=== PATIENT | male | born 1950 | race Caucasian/White ===

== ENCOUNTER 2018-11-27 18:50 | Observation (INO) | payer OTHER ==
--- OUTSIDE RECORDS SUMMARY | 2018-11-27 18:51 | XMS REPORT | Clinical Summary ---
:1950 Author Organization [facility] Address [address] [place] [address] Care Team Providers Name Role Phone Luh Humphreys DO Primary Care Provider Allergies Active Allergy Reactions Severity Noted Date Comments No Known Drug Allergies 10/22/2015 Medications Medication Sig Dispensed Refills Start Date End Date Status buPROPion SR Take 1 180 tablet 1 06/23/2017 Active (WELLBUTRIN SR) 150 tablet(s) twice MG 12 hr tablet a day by oral route. ezetimibe-simvastati Take 1 90 tablet 1 06/23/2017 Active n (VYTORIN 10-20) tablet(s) every 10-20 mg per tablet day by oral route. clopidogrel (PLAVIX) Take 1 90 tablet 1 06/23/2017 Active 75 mg tablet tablet(s) every day by oral route. isosorbide one p.o. q. day 90 tablet 1 06/23/2017 Active mononitrate (IMDUR) 30 MG 24 hr tablet tamsulosin (FLOMAX) one P.O.B.I.D. 180 capsule 1 06/23/2017 Active 0.4 mg capsule,extended release 24hr PARoxetine (PAXIL) Take 1 tablet 90 tablet 1 06/30/2017 06/30/2018 20 MG tablet (20 mg total) by mouth every morning. Active Problems Problem Noted Date Right inguinal hernia 08/03/2017 Overview: Added automatically from request for surgery [id number] Essential hypertension 06/23/2017 History of coronary artery stent placement 11/05/2016 Unilateral inguinal hernia without obstruction or gangrene 11/05/2016 Hernia, inguinal, right 11/05/2016 Benign prostatic hyperplasia 10/22/2015 Coronary artery disease involving [place] coronary artery of [place] heart 10/21 without angina pectoris Gastroesophageal reflux disease 10/22/2015 Depression 10/22/2015 Goiter 10/22/2015 Hypercholesteremia 10/22/2015 Neck pain 10/22/2015 Encounters Date Type Specialty Care Team Description 05/16/2018 Refill Family Medicine Luh Humphreys, 02/03/2018 Refill Family Medicine Luh Humphreys, DO after 11/26/2017 Immunizations Name Dates Previously Given Next Due FLUZONE HIGH-DOSE PF 05/22/2014 Family History Medical History Relation Name Comments COPD Father Heart disease Mother Heart disease Sister Heart disease Sister Relation Name Status Comments Father (Age 78) Mother (Age 83) Sister Alive heart attack. Sister #2 sister, of cirrhosis of liver. Social History Tobacco Use Types Packs/Day Years Used Date Former Smoker Pipe, Cigarettes 0 Smokeless Tobacco: Never Used Comments: states previously smoker for 3 years, quit 1988. Alcohol Use Drinks/Week oz/Week Comments Yes 2 Cans of beer 1.2 once/ weekly. Sex Assigned at Date Recorded Not on file Job Start Date Occupation Industry Not on file Not on file Not on file Travel History Travel Start Travel End No recent travel history available. Last Filed Vital Signs Not on file Plan of Treatment Health Maintenance Due Date Last Done Comments SHINGLES VACCINES (#1) 1998 65+ PNEUMOCOCCAL VACCINE (2 of 2 - PPSV23) 2013 08/29/2017 INFLUENZA VACCINE 03/22/2019 05/22/2014 COLON CANCER SCREENING 08/22/2023 08/22/2013 PNEUMOCOCCAL POLYSACCHARIDE VACCINE AGE 65 AND OVER Completed 08/29/2017 Results Not on fileafter 11/26/2017 Insurance Payer Benefit Plan / Group Subscriber ID Type Phone Address [facility] xxxxxxxxxxx Advance Directives Patient has advance care planning documents on file. For more information, please contact:Luke Horton[address] [place] [address]
--- NOTE | 2018-11-27 19:10 | EDPHYS ---
Physician Documentation [facility] Name: Keaton Walker Jr Age: 68 yrs Sex: Male : 1950 Arrival Date: 11/27/2018 Time: 18:51 Bed 30 Private MD: ED Physician Clemente Irizarry HPI: 11/27 19:06 This 68 yrs old Male presents to ER via Ambulatory with complaints of Chest aletha Pain. 19:06 The patient or guardian reports chest pain that is located primarily in the substernal aletha area. Onset: just prior to arrival, 1 hour(s) ago. The pain radiates to both arms, Associated signs and symptoms: The patient has no apparent associated signs or symptoms. The chest pain is described as a pressure, squeezing. Duration: The patient or guardian reports a single episode, that is still ongoing, but improving. Modifying factors: The symptoms are alleviated by nothing. the symptoms are aggravated by nothing. Severity of pain: At its worst the pain was moderate in the emergency department the pain has improved moderately. The patient has experienced similar episodes in the past, a few times. 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 - Social history:: Smoking status: Patient/guardian denies using tobacco. - Ebola Screening: : Patient denies exposure to infectious person Patient denies travel to an Ebola-affected area in the 21 days before illness onset. - Family history:: not pertinent. ROS: 19:06 Constitutional: Negative for fever, chills, and weight loss, Eyes: Negative for injury, aletha pain, redness, and discharge, ENT: Negative for injury, pain, and discharge, Neck: Negative for injury, pain, and swelling, Respiratory: Negative for shortness of breath, cough, wheezing, and pleuritic chest pain, Abdomen/GI: Negative for abdominal pain, nausea, vomiting, diarrhea, and constipation, Back: Negative for injury and pain, : Negative for injury, bleeding, discharge, and swelling, MS/Extremity: Negative for injury and deformity, Skin: Negative for injury, rash, and discoloration, Neuro: Negative for headache, weakness, numbness, tingling, and seizure, Psych: Negative for depression, anxiety, suicide ideation, homicidal ideation, and hallucinations, Allergy/Immunology: Negative for hives, rash, and allergies, Endocrine: Negative for neck swelling, polydipsia, polyuria, polyphagia, and marked weight changes. 19:06 Cardiovascular: Positive for chest pain, of the chest. Exam: 19:06 Constitutional: This is a well developed, well nourished patient who is awake, alert, aletha and in no acute distress. Head/Face: Normocephalic, atraumatic. Eyes: Pupils equal round and reactive to light, extra-ocular motions intact. Lids and lashes normal. Conjunctiva and sclera are non-icteric and not injected. Cornea within normal limits. Periorbital areas with no swelling, redness, or edema. ENT: Nares patent. No nasal discharge, no septal abnormalities noted. Tympanic membranes are normal and external auditory canals are clear. Oropharynx with no redness, swelling, or masses, exudates, or evidence of obstruction, uvula midline. Mucous membranes moist. Neck: Trachea midline, no thyromegaly or masses palpated, and no cervical lymphadenopathy. Supple, full range of motion without nuchal rigidity, or vertebral point tenderness. No Meningismus. Chest/axilla: Normal chest wall appearance and motion. Nontender with no deformity. No lesions are appreciated. Cardiovascular: Regular rate and rhythm with a normal S1 and S2. No gallops, murmurs, or rubs. Normal PMI, no JVD. No pulse deficits. Respiratory: Lungs have equal breath sounds bilaterally, clear to auscultation and percussion. No rales, rhonchi or wheezes noted. No increased work of breathing, no retractions or nasal flaring. Abdomen/GI: Soft, non-tender, with normal bowel sounds. No distension or tympany. No guarding or rebound. No evidence of tenderness throughout. Back: No spinal tenderness. No costovertebral tenderness. Full range of motion. Male : Normal genitalia with no discharge or lesions. Skin: Warm, dry with normal turgor. Normal color with no rashes, no lesions, and no evidence of cellulitis. MS/ Extremity: Pulses equal, no cyanosis. Neurovascular intact. Full, normal range of motion. Neuro: Awake and alert, GCS 15, oriented to person, place, time, and situation. Cranial nerves II-XII grossly intact. Motor strength 5/5 in all extremities. Sensory grossly intact. Cerebellar exam normal. Normal gait. Psych: Awake, alert, with orientation to person, place and time. Behavior, mood, and affect are within normal limits. Vital Signs: 18:57 BP 182 / 95; Pulse 84; Resp 19; Temp 98.0(O); Pulse Ox 98% on R/A; Weight 86.18 kg; ss Height 5 ft. 10 in. (177.80 cm); Pain 5/10; 19:50 BP 173 / 91; Pulse 73; Resp 20; Pulse Ox 97% on R/A; rr5 20:30 BP 144 / 74 LA; Pulse 64; Resp 16 S; Pulse Ox 97% on R/A; rv 21:00 BP 148 / 78 LA; Pulse 59; Resp 17 S; Pulse Ox 97% on R/A; rv 21:30 BP 140 / 75 LA; Pulse 56; Resp 16 S; Pulse Ox 96% on R/A; rv 22:00 BP 144 / 73 LA; Pulse 58; Resp 17 S; Pulse Ox 95% on R/A; rv 22:30 BP 137 / 83 LA; Pulse 58; Resp 16 S; Pulse Ox 95% on R/A; rv 23:46 BP 140 / 81 LA; Pulse 58; Resp 18 S; Pulse Ox 96% on R/A; rv 18:57 Body Mass Index 27.26 (86.18 kg, 177.80 cm) MDM: 18:56 Patient medically screened. [facility] 20:36 Data reviewed: vital signs, nurses notes, lab test result(s), EKG, radiologic studies, aletha plain films. 11/27 19:06 Order name: Basic Metabolic Panel; Complete Time: 20:35 aletha 11/27 19:06 Order name: CBC with Diff; Complete Time: 20:35 aletha 11/27 19:06 Order name: LFT's; Complete Time: 20:35 aletha 11/27 19:06 Order name: Magnesium; Complete Time: 20:35 aletha 11/27 19:06 Order name: NT PRO-BNP; Complete Time: 20:35 [facility] 11/27 19:06 Order name: PT-INR; Complete Time: 20:35 aletha 11/27 19:06 Order name: Troponin (emerg Dept Use Only); Complete Time: 20:35 aletha 11/27 19:06 Order name: Lipase; Complete Time: 20:35 aletha 11/27 20:57 Order name: Basic Metabolic Panel EDMS 11/27 20:58 Order name: Basic Metabolic Panel EDMS 11/27 20:58 Order name: CBC with Automated Diff EDMS 11/27 20:58 Order name: CBC with Automated Diff EDMS 11/27 20:58 Order name: Lipid Profile EDMS 11/27 20:58 Order name: Lipid Profile EDMS 11/27 19:06 Order name: XRAY Chest (1 view); Complete Time: 20:35 aletha 11/27 19:06 Order name: EKG; Complete Time: 19:07 aletha 11/27 20:57 Order name: CONS Physician Consult EDMS 11/27 20:57 Order name: Heart Healthy EDMS 11/27 20:57 Order name: Echo with Doppler EDMS 11/27 20:58 Order name: Troponin I EDNJ 11/27 20:58 Order name: Troponin I EDMS 11/27 20:58 Order name: Troponin I EDMS 11/27 19:06 Order name: Cardiac monitoring; Complete Time: 20:48 aletha 11/27 19:06 Order name: EKG - Nurse/Tech; Complete Time: 20:48 aletha 11/27 19:06 Order name: IV Saline Lock; Complete Time: 20:49 aletha 11/27 19:06 Order name: Labs collected and sent; Complete Time: 20:49 aletha 11/27 19:06 Order name: O2 Per Protocol; Complete Time: 20:49 aletha 11/27 19:06 Order name: O2 Sat Monitoring; Complete Time: 20:49 aletha 11/27 20:57 Order name: EKG Electrocardiogram EDMS 11/27 20:57 Order name: EKG Electrocardiogram EDMS Administered Medications: 19:30 Drug: Aspirin Chewable Tablet 81 mg Route: PO; rr5 20:16 Follow up: Response: No adverse reaction rr5 19:36 Drug: morphine 4 mg Route: IVP; Site: right forearm; rr5 20:15 Follow up: Response: Pain is decreased rr5 19:36 Drug: Zofran 4 mg Route: IVP; Site: right forearm; rr5 20:14 Follow up: Response: No adverse reaction rr5 19:37 Drug: Pepcid 20 mg Route: IVP; Site: right forearm; rr5 20:17 Follow up: Response: No adverse reaction rr5 19:37 Drug: Lovenox 1 mg/kg Route: Sub-Q; Site: right lower abdomen; rr5 20:16 Follow up: Response: No adverse reaction rr5 19:37 Drug: Lopressor (metoprolol TARTRATE) 50 mg Route: PO; rr5 20:16 Follow up: Response: Blood pressure is lowered rr5 19:37 Drug: Lopressor 2.5 mg Route: IVP; Site: right forearm; rr5 20:16 Follow up: Response: Blood pressure is lowered rr5 20:50 Drug: Lopressor 2.5 mg Route: IVP; Site: right forearm; rv 23:49 Follow up: Response: Blood pressure is lowered rv Disposition: 11/27/18 19:10 Hospitalization ordered by Lisa Shepard for Observation. Preliminary diagnosis are Chest pain, unspecified, Essential (primary) hypertension, Cardiomegaly - MILD. - Bed requested for Telemetry/MedSurg (observation). - Status is Observation. rv - Condition is Fair. - Problem is new. - Symptoms have improved. UTI on Admission? No Signatures: Dispatcher [employer] EDMS Clemente Irizarry MD MD cha Smirch, Shelby, RN RN ss Lizeth Espinal RN RN df Jose Puentes, RN RN rv Karol Woods, RN RN rr5 Corrections: (The following items were deleted from the chart) 20:37 19:10 Hospitalization Ordered by Lisa Shepard MD for Observation. Preliminary aletha diagnosis is Chest pain, unspecified; Essential (primary) hypertension. Bed requested for Telemetry/MedSurg (observation). Status is Observation. Condition is Fair. Problem is new. Symptoms have improved. UTI on Admission? No. aletha 23:21 20:37 11/27/2018 19:10 Hospitalization Ordered by Lisa Shepard MD for Observation. df Preliminary diagnosis is Chest pain, unspecified; Essential (primary) hypertension; Cardiomegaly - MILD. Bed requested for Telemetry/MedSurg (observation). Status is Observation. Condition is Fair. Problem is new. Symptoms have improved. UTI on Admission? No. aletha 23:57 23:21 11/27/2018 19:10 Hospitalization Ordered by Lisa Shepard MD for Observation. rv Preliminary diagnosis is Chest pain, unspecified; Essential (primary) hypertension; Cardiomegaly - MILD. Bed requested for Telemetry/MedSurg (observation). Status is Observation. Condition is Fair. Problem is new. Symptoms have improved. UTI on Admission? No. df
--- NOTE | 2018-11-27 19:10 | ER ---
Nurse's Notes [facility] Name: Keaton Walker Jr Age: 68 yrs Sex: Male : 1950 Arrival Date: 11/27/2018 Time: 18:51 Bed 30 Private MD: Diagnosis: Chest pain, unspecified;Essential (primary) hypertension;Cardiomegaly-MILD Presentation: 11/27 18:56 Presenting complaint: Patient states: CP that began 20 minutes ago while watching TV. ss Transition of care: patient was not received from another setting of care. Onset of symptoms was November 27, 2018. Risk Assessment: Do you want to hurt yourself or someone else? Patient reports no desire to harm self or others. Initial Sepsis Screen: Does the patient meet any 2 criteria? No. Patient's initial sepsis screen is negative. Does the patient have a suspected source of infection? No. Patient's initial sepsis screen is negative. Care prior to arrival: None. 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 - Social history:: Smoking status: Patient/guardian denies using tobacco. - Ebola Screening: : Patient denies exposure to infectious person Patient denies travel to an Ebola-affected area in the 21 days before illness onset. - Family history:: not pertinent. Screenin:00 Abuse screen: Denies threats or abuse. Denies injuries from another. Nutritional rv screening: No deficits noted. Tuberculosis screening: No symptoms or risk factors identified. 19:00 Fall Risk None identified. rv Assessment: 19:00 General: Appears in no apparent distress. comfortable, Behavior is calm, cooperative. rv 19:00 Pain: Complains of pain in chest Pain radiates to right arm Pain began suddenly. Neuro: rv Level of Consciousness is awake, alert, obeys commands, Oriented to person, place, time, situation. Cardiovascular: Capillary refill < 3 seconds Rhythm is sinus rhythm with PACs. Respiratory: Airway is patent. GI: No signs and/or symptoms were reported involving the gastrointestinal system. : No signs and/or symptoms were reported regarding the genitourinary system. EENT: No signs and/or symptoms were reported regarding the EENT system. Derm: Skin is intact. 22:37 Reassessment: Patient appears in no apparent distress at this time. Patient and/or rv family updated on plan of care and expected duration. Pain level reassessed. Patient is alert, oriented x 3, equal unlabored respirations, skin warm/dry/pink. Patient denies pain at this time. Patient states feeling better. Patient states symptoms have improved. Vital Signs: 18:57 BP 182 / 95; Pulse 84; Resp 19; Temp 98.0(O); Pulse Ox 98% on R/A; Weight 86.18 kg; ss Height 5 ft. 10 in. (177.80 cm); Pain 5/10; 19:50 BP 173 / 91; Pulse 73; Resp 20; Pulse Ox 97% on R/A; rr5 20:30 BP 144 / 74 LA; Pulse 64; Resp 16 S; Pulse Ox 97% on R/A; rv 21:00 BP 148 / 78 LA; Pulse 59; Resp 17 S; Pulse Ox 97% on R/A; rv 21:30 BP 140 / 75 LA; Pulse 56; Resp 16 S; Pulse Ox 96% on R/A; rv 22:00 BP 144 / 73 LA; Pulse 58; Resp 17 S; Pulse Ox 95% on R/A; rv 22:30 BP 137 / 83 LA; Pulse 58; Resp 16 S; Pulse Ox 95% on R/A; rv 23:46 BP 140 / 81 LA; Pulse 58; Resp 18 S; Pulse Ox 96% on R/A; rv 18:57 Body Mass Index 27.26 (86.18 kg, 177.80 cm) ED Course: 18:51 Patient arrived in ED. mr 18:53 Jose Puentes, JARED is Primary Nurse. 18:56 Triage completed. 18:56 Clemente Irizarry MD is Attending Physician. [facility] 18:57 Arm band placed on right wrist. ss 19:00 Patient has correct armband on for positive identification. Bed in low position. Call rv light in reach. Side rails up X 1. Adult w/ patient. 19:00 environmental monitoring technician on. Pulse ox on. NIBP on. rv 19:00 Inserted saline lock: 20 gauge in right antecubital area, using aseptic technique. rv Blood collected. Patient maintains SpO2 saturation greater than 95% on room air. 19:09 Lisa Shepard MD is Hospitalizing Provider. aletha 20:19 XRAY Chest (1 view) In Process Unspecified. EDMS 23:45 No provider procedures requiring assistance completed. Patient admitted, IV remains in rv place. Administered Medications: 19:30 Drug: Aspirin Chewable Tablet 81 mg Route: PO; rr5 20:16 Follow up: Response: No adverse reaction rr5 19:36 Drug: morphine 4 mg Route: IVP; Site: right forearm; rr5 20:15 Follow up: Response: Pain is decreased rr5 19:36 Drug: Zofran 4 mg Route: IVP; Site: right forearm; rr5 20:14 Follow up: Response: No adverse reaction rr5 19:37 Drug: Pepcid 20 mg Route: IVP; Site: right forearm; rr5 20:17 Follow up: Response: No adverse reaction rr5 19:37 Drug: Lovenox 1 mg/kg Route: Sub-Q; Site: right lower abdomen; rr5 20:16 Follow up: Response: No adverse reaction rr5 19:37 Drug: Lopressor (metoprolol TARTRATE) 50 mg Route: PO; rr5 20:16 Follow up: Response: Blood pressure is lowered rr5 19:37 Drug: Lopressor 2.5 mg Route: IVP; Site: right forearm; rr5 20:16 Follow up: Response: Blood pressure is lowered rr5 20:50 Drug: Lopressor 2.5 mg Route: IVP; Site: right forearm; rv 23:49 Follow up: Response: Blood pressure is lowered rv Outcome: 19:10 Decision to Hospitalize by Provider. [facility] 23:46 Admitted to Med/surg accompanied by tech, via wheelchair, room 217, with chart, Report rv called to XAVIER COLEMAN 23:46 Condition: good 23:46 Instructed on the need for admit, Demonstrated understanding of instructions. 23:57 Patient left the ED. rv Signatures: Dispatcher [employer] EDMS Clemente Irizarry MD MD cha Rivera, Emily mr Mary Jane Scott RN RN ss Jose Puentes RN RN rv Woods, Karlo, RN RN rr5
[2018-11-27] MEDS ORDERED: METOPROLOL TAR 50 MG TAB ONE (19:28)
[2018-11-27] MEDS ORDERED: ASPIRIN 81 MG CHEWABLE TABLET ONE (19:28)
[2018-11-27] MEDS ORDERED: ENOXAPARIN 100 MG/ML SYR SQ ONE (19:29)
[2018-11-27] MEDS ORDERED: ONDANSETRON 4 MG/2 ML VIAL ONE (19:29)
[2018-11-27] MEDS ORDERED: FAMOTIDINE 20 MG/2 ML VIAL IV ONE (19:29)
[2018-11-27] MEDS ORDERED: MORPHINE 4 MG/ML SYR ONE (19:29)
[2018-11-27] MEDS ORDERED: METOPROLOL TARTRATE 5 MG/5 ML INJ IV ONE (19:30)
[2018-11-27 19:44] LABS: Absolute Lymphocytes (CBC) 2.4 K/uL (0.7-4.9); Absolute Monocytes 0.8 K/uL (0.1-1.3); Absolute Neutrophil 4.8 K/uL (1.8-8.0); Basophils % 0.9 % (0-1.3); Eosinophils % 1.7 % (0-4.4); Lymphocytes % 29.3 % (15.3-44.8); MPV 8.6 fL (7.6-11.3); Monocytes % 9.8 % (3.3-12.3); RBC Red Blood Cell Count 5.65 M/uL (4.33-5.43)
[2018-11-27 19:48] LABS: Protime INR 0.98
[2018-11-27 20:08] LABS: ALT/SGPT 25 U/L (12-78); AST/SGOT 16 U/L (15-37); Albumin 3.4 g/dL (3.4-5.0); Alkaline Phosphatase 123 U/L (45-117); BUN Blood Urea Nitrogen 16 mg/dL (7-18); Bicarbonate 26 mmol/L (21-32); Bilirubin Direct < 0.1 mg/dL (0-0.2); Bilirubin Total 0.3 mg/dL (0.2-1.0); Glucose Level 114 mg/dL (74-106); Lipase 164 U/L (73-393); NT PRO-BNP 116 pg/mL (<125); Potassium 3.9 mmol/L (3.5-5.1); Protein, Total 7.3 g/dL (6.4-8.2); Sodium Level 144 mmol/L (136-145); Troponin (Emerg Dept Use Only) < 0.02 ng/mL (0.0-0.045)
--- NOTE | 2018-11-27 20:27 | RAD REPORT ---
EXAM DESCRIPTION: RAD - Chest Single View - 11/27/2018 8:19 pm CLINICAL HISTORY: CHEST PAIN Chest pain. COMPARISON: CHEST SINGLE VIEW dated 10/26/2011Chest Single View dated 09/04/2017; Chest Single View adriano ed 10/30/2016; Chest Single View dated 03/06/2016; Chest Single View dated 12/24/2015 FINDINGS: Portable technique limits examination quality. The lungs are grossly clear. The heart is mildly enlarged in size. No displaced fractures.Aortic athe rosclerosis. IMPRESSION: No acute intrathoracic process suspected.
[2018-11-27] MEDS ORDERED: ACETAMINOPHEN 500 MG TAB PO PRN (20:53)
[2018-11-28 00:18] VITALS: BMI 29.5
[2018-11-28] MEDS: METOPROLOL TAR 50 MG TAB PO SCH ×2 (00:48→09:48)
[2018-11-28 00:56] VITALS: O2SAT 96
[2018-11-28 07:01] LABS: Absolute Lymphocytes (CBC) 2.4 K/uL (0.7-4.9); Absolute Monocytes 0.8 K/uL (0.1-1.3); Absolute Neutrophil 5.3 K/uL (1.8-8.0); Basophils % 0.8 % (0-1.3); Eosinophils % 1.5 % (0-4.4); Hematocrit 45.1 % (39.6-49.0); Lymphocytes % 27.4 % (15.3-44.8); MPV 8.9 fL (7.6-11.3); Monocytes % 9.5 % (3.3-12.3); RBC Red Blood Cell Count 5.16 M/uL (4.33-5.43)
[2018-11-28 07:20] LABS: Troponin I 0.02 ng/mL (0.0-0.045)
--- NOTE | 2018-11-28 08:15 | P.HP ---
Certification for Inpatient Patient admitted to: Observation With expected LOS: <2 Midnights Patient will require the following post-hospital care: None Practitioner: I am a practitioner with admitting privileges, knowledge of patient current condition, hospital course, and medical plan of care. Services: Services provided to patient in accordance with Admission requirements found in Title 42 Section 412.3 of the Code of Federal Regulations Patient History Date of Service: 11/27/18 Reason for admission: Chest pain rule out acute coronary syndrome History of Present Illness: Patient is a 68-year-old gentleman well known to me from multiple prior admissions. He had a recent cardiac catheterization a couple years ago which did not reveal any worsening atherosclerotic disease according to the patient. He did not need a stent placed at that time. The stent that he had was completely open according to the patient. He started having chest pain across his chest and went to both shoulders. He said it was similar to his cardiac chest pain in the past. Initial workup including troponins and EKG were unremarkable. Will go ahead and rule out patient for acute coronary syndrome with cardiology consultation. Allergies No Known Drug Allergies Allergy (Verified 11/28/18 00:17) Unknown Home Medications: Clopidogrel Bisulfate [Plavix] 75 mg PO BEDTIME 02/22/12 Ranitidine HCl 150 mg PO BID 02/22/12 Tamsulosin HCl 0.4 mg PO BID 02/22/12 Bupropion HCl [Bupropion HCl Sr] 1 tab PO BID 11/28/18 Isosorbide Mononitrate [Isosorbide Mononitrate ER] 1 tab PO DAILY 11/28/18 - Past Medical/Surgical History Has patient received pneumonia vaccine in the past: Yes Diabetic: No -: HTN -: Hyperlipidemia -: CAD, 2001-stent placed -: Depression -: BPH -: GERD -: Cardiac stent placement 2001 -: Left knee surgery 2009 -: Cholecystectomy 2009 -: Tonsilectomy -: Benign growth on testicle removed Psychosocial/ Personal History: The patient is a . He lives by himself. 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 He has 1 child. - Family History Father Medical History: Lung disease, Cancer Notes: Mesothelioma Mother Medical History: Heart disease, Hypertension Sister Notes: well - Social History Smoking Status: Never smoker Alcohol use: No CD- Drugs: No Caffeine use: Yes Place of Residence: Home Review of Systems 10-point ROS is otherwise unremarkable Physical Examination - Vital Signs Temperature: 98.2 F Blood Pressure: 120/68 Pulse: 66 Respirations: 18 Pulse Ox (%): 94 - Physical Exam General: Alert, In no apparent distress, Oriented x3 HEENT: Atraumatic, PERRLA, Mucous membr. moist/pink, EOMI, Sclerae nonicteric Neck: Supple, 2+ carotid pulse no bruit, No LAD, Without JVD or thyroid abnormality Respiratory: Clear to auscultation bilaterally, Normal air movement Cardiovascular: Regular rate/rhythm, Normal S1 S2, No murmurs Gastrointestinal: Normal bowel sounds, Soft and benign, Non-distended, No tenderness Musculoskeletal: No clubbing, No swelling, No tenderness Integumentary: No rashes Neurological: Normal gait, Normal speech, Normal strength at 5/5 x4 extr, Normal tone, Sensation intact, Cranial nerves 3-12 intact, Normal affect Lymphatics: No axilla or inguinal lymphadenopathy - Studies Laboratory Data (last 24 hrs) 11/27/18 19:30: PT 11.6, INR 0.98 11/27/18 19:30: WBC 8.2, Hgb 16.5, Hct 49.0, Plt Count 292 11/27/18 19:30: Sodium 144, Potassium 3.9, BUN 16, Creatinine 1.07, Glucose 114 H, Magnesium 2.0, Total Bilirubin 0.3, AST 16, ALT 25, Alkaline Phosphatase 123 H, Lipase 164 Assessment & Plan - Problems (Diagnosis) (1) Chest pain, rule out acute myocardial infarction Current Visit: Yes Status: Acute (2) Coronary arteriosclerosis Current Visit: No Status: Active (3) CAD (coronary artery disease) Onset Date: 03/08/16 Current Visit: No Status: Chronic Qualifiers: (4) Depression with anxiety Onset Date: 08/30/17 Current Visit: No Status: Chronic (5) GERD (gastroesophageal reflux disease) Onset Date: 08/30/17 Current Visit: No Status: Chronic Qualifiers: (6) Hyperlipidemia Onset Date: 03/08/16 Current Visit: No Status: Chronic Qualifiers: - Plan 1. Serial troponins and EKG 2. Cardiology consultation 3. Echocardiogram and further intervention as recommended per Cardiology 4. Anti-platelet therapy, anti coagulation, beta-maurice, statin, and O2 as needed 5. Pain medication as needed 6. Nitro p.r.n. Discharge Plan: Home Plan to discharge in: 24 Hours - Advance Directives Does patient have a Living Will: No Does patient have a Durable POA for Healthcare: No - Code Status/Comfort Care Code Status Assessed: Yes Code Status: Full Code Critical Care: No Time Spent Managing PTS Care (In Minutes): 40
[2018-11-28 08:50] LABS: Urine Appearance CLOUDY; Urine Bilirubin NEGATIVE (NEG); Urine Blood NEGATIVE (NEG); Urine Color YELLOW; Urine Glucose NEGATIVE (NEG); Urine Protein NEGATIVE (NEG); Urine Urobilinogen 0.2 mg/dL (0.2-1.0); Urine pH 5.5 (5.0-7.0)
[2018-11-28] MEDS ORDERED: REGADENOSON 0.4 MG/5 ML SYR IV ONE (08:53)
[2018-11-28] MEDS ORDERED: ENOXAPARIN 40 MG/0.4 ML SQ SCH (09:00)
[2018-11-28] MEDS ORDERED: ASPIRIN EC 81 MG TAB PO SCH (09:00)
[2018-11-28 09:26] LABS: Urine Bacteria >50 /HPF (NONE SEEN); Urine Culture Reflex Order REFLEXED; Urine Mucus MOD /HPF (NONE SEEN); Urine RBC <5 /HPF (NONE SEEN)
--- NOTE | 2018-11-28 09:52 | CON ---
History Of Present Illness: Mr. Walker is 68 years old. In 2001, he had a stent placed in his heart, he cannot name what it is. In 2016, we did a cardiac cath and found that there was disease in small side branches of major vessel. A stent was patent, but the report does not say where the stent was. Mr. Walker in general does well. He retired 4 months ago. Since then, he has been very inactive. Yesterday, he was sitting at rest and both armpits hurt, later his left arm hurt, and then later it r adiated to the fourth and fifth digits of his left hand, not the whole hand, then it went away all in about a matter of half an hour. He came to the emergency room where EKGs and enzymes have been unre markable or normal. Outpatient Medications: Flomax, ranitidine, Plavix, bupropion, and isosorbide mononitrate. Allergies: HE HAS NO ALLERGIES. Social History: He uses no tobacco. Alcohol use minimal. No illegal drugs. Physical Examination: Vital Signs: 5 feet 10 inches, 205 pounds. Blood pressure 120/68, heart rate 66. HEENT: Normal. Lungs: Clear. Extremities: Pulses in the arms are normal. Pulses in the legs are normal. No edema. Laboratory Data: His creatinine is 1.14. Total cholesterol 165, LDL 91. Impression: My impression is that Mr. Walker is probably not having an acute coronary syndrome. He c ertainly is an at-risk patient, and I have recommended a pharmacologic nuclear stress test for later today. ZACHARY Voice ID: [id number] Report ID: [id number]
--- NOTE | 2018-11-28 11:43 | EKG ---
Test Date: 2018-11-28 Test Time: 08:12:02 Floor Care Specialist: NAKIA MEASUREMENT RESULTS: Intervals: Rate: 58 AK: 192 QRSD: 124 QT: 420 QTc: 412 [place]: P: 48 AK: 192 QRS: -63 T: -5 INTERPRETIVE STATEMENTS: Sinus bradycardia Incomplete right bundle branch block Left anterior fascicular block Abnormal ECG Compared to ECG 11/27/2018 18:56:36 Sinus rhythm no longer present Atrial premature complex(es) no longer present Electronically Signed On 11-28-18 09:59:58 CDT by Manoj Siddiqui
--- NOTE | 2018-11-28 11:46 | EKG ---
Test Date: 2018-11-27 Test Time: 18:56:36 Senior Materials Analyst: MEASUREMENT RESULTS: Intervals: Rate: 85 FL: 164 QRSD: 120 QT: 390 QTc: 464 [place]: P: 55 FL: 164 QRS: -71 T: 54 INTERPRETIVE STATEMENTS: Sinus rhythm with premature atrial complexes Left anterior fascicular block Incomplete right bundle branch block Abnormal ECG Compared to ECG 10/31/2016 06:53:03 Atrial premature complex(es) now present Sinus bradycardia no longer present Right bundle-branch block no longer present Electronically Signed On 11-28-18 10:05:21 CDT by Manoj Siddiqui
[2018-11-28 12:15] VITALS: BP 127/67; TEMP 97.5
--- NOTE | 2018-11-28 12:58 | RAD REPORT ---
EXAM DESCRIPTION: NM - Rest Stress Cardiac Imaging - 11/28/2018 12:51 pm CLINICAL HISTORY: CP Chest pain. COMPARISON: Rest Stress Cardiac Imaging dated 03/08/2016 TECHNIQUE: The patient was administered approximately 10mCi of Tc 99m Sestamibi prior to resting SPE CT imaging of the heart. The patient was then administered approximately 30 mCi of Tc 99m Sestamibi f ollowing exercise or pharmacologic stress. Multiplanar SPECT images were reviewed. FINDINGS: No stress induced ischemic defect is seen to suggest stress induced ischemia. No fixed def ect is seen to suggest hibernating myocardium or scarred myocardium. The end diastolic volume is 140 ml, the end systolic volume is 78 ml, and the ejection fraction is 44 %. IMPRESSION: No stress induced ischemia.
--- NOTE | 2018-11-29 07:58 | TREADPHA ---
DX: CHEST PAIN, CORONARY ARTERY DISEASE Date of Study: 11/28/2018 Ht: 5 10 Wt: 205 lb 14.4 oz Consulting Physician: DR. LINDSAY MEDICATIONS: FLOMAX, PEPCID, BLOOD PRESSURE MEDICINE HISTORY: 68 YEAR OLD MALE, COMPLAINTS OF CHEST PAIN AND PREVIOUS CORONARY ARTERY DISEASE. MEDICIAL HISTORY OF CORONARY ARTERY DISEASE, DEPRESSION, ENLARGED PROSTATE, HIGH CHOLESTEROL, HEART STENTS. PHYSICIAL EXAMINATION: RESTING B.P.: 153/82 RESTING H.R.: 59 RESTING EKG: SINUS, RIGHT BUNDLE BRANCH BLOCK, NON SPECIFIC T WAVE. PROTOCOL: LEXISCAN EXERCISE TIME: 3:30 B.P. AT PEAK STRESS: 141/65 IMPRESSION: LEXISCAN INJECTED, FOLLOWED BY CARDIOLITE PER PROTOCOL. SEE NUCLEAR MEDICINE REPORT. NO SUPRAVENTRICULAR TACHYCARDIA, VENTRICULAR TACHYCARDIA, PREMATURE ATRIAL COMPLEXES, PREMATURE VENTRICULAR COMPLEXES. PATIENT REPORTED NO CHEST PAIN. NON-DIAGNOSTIC ELECTROCARDIOGRAM WITH LEXISCAN STRESS.
--- NOTE | 2018-11-29 08:05 | ECHO ---
HEIGHT: 5 ft 10 in WEIGHT: 205 lb 14.4 oz DATE OF STUDY: 11/28/[address]: Lisa Shepard MD 2-DIMENSIONAL: YES M.MODE: YES DOPPLER: YES COLOR FLOW: YES TDS: YES PORTABLE: NO DEFINITY: NO BUBBLE STUDY: NO DIAGNOSIS: CHEST PAIN CARDIAC HISTORY: CATHERIZATION: YES SURGERY: NO PROSTHETIC VALVE: NO PACEMAKER: NO MEASUREMENTS (cm) DIASTOLIC (NORMALS) SYSTOLIC (NORMALS) IVSd 1.2 (0.6-1.2) LA Diam 3.8 (1.9-4.0) LVEF 55-59% LVIDd 4.6 (3.5-5.7) LVIDs 3.5 (2.0-3.5) %FS 25% LVPWd 1.2 (0.6-1.2) Ao Diam 2.9 (2.0-3.7) 2 DIMENSIONAL ASSESSMENT: RIGHT ATRIUM: NORMAL LEFT ATRIUM: NORMAL RIGHT VENTRICLE: NORMAL LEFT VENTRICLE: NORMAL TRICUSPID VALVE: NORMAL MITRAL VALVE: NORMAL PULMONIC VALVE: NORMAL AORTIC VALVE: 3 LEAFLETS, MILD THICKENING PERICARDIAL EFFUSION: NONE AORTIC ROOT: NORMAL LEFT VENTRICULAR WALL MOTION: NORMAL. DOPPLER/COLOR FLOW: NO AORTIC STENOSIS. MILD AORTIC REGURGITATION, MILD MITRAL REGURGITATION. MILD TRICUSPID REGURGITATION. NORMAL RIGHT VENTRICULAR SYSTOLIC PRESSURE. COMMENTS: NORMAL LEFT VENTRICULAR EJECTION FRACTION. AORTIC SCLEROSIS WITH NO AORTIC STENOSIS. MILD AORTIC REGURGITATION, MITRAL REGURGITATION, AND TRICUSPID REGURGITATION. TECHNOLOGIST: TRISTON DOW
== END 2018-11-28 16:10 | disposition home or self-care (01) ==
LOC: ER 18:50 → ERHOLD 20:54 → 2ND 23:47
PROVIDERS: ADMIT Hospitalist; ATTEND Hospitalist
DX: R07.9 Chest pain, unspecified (principal); I25.10 Atherosclerotic heart disease of native coronary artery without angina pectoris; E78.5 Hyperlipidemia, unspecified; I10 Essential (primary) hypertension; N40.0 Benign prostatic hyperplasia without lower urinary tract symptoms; F41.8 Other specified anxiety disorders; Z95.5 Presence of coronary angioplasty implant and graft; K21.9 Gastro-esophageal reflux disease without esophagitis
CPT/HCPCS: 36415; 71045; 78452; 80048; 80061; 80076; 81001; 83690; 83735; 83880; 84484; 85025; 85610; 87086; 87088; 93005; 93017; 93306; 96372; 96374; 96375; 99285; A9500; G0378; J1650; J2405; J2785

== ENCOUNTER 2019-03-01 16:03 | Emergency (ER) | payer OTHER ==
--- OUTSIDE RECORDS SUMMARY | 2019-03-01 16:05 | XMS REPORT | Clinical Summary ---
:1950 Author Organization [facility] Address [address] [place] [address] Care Team Providers Name Role Phone Luh [...] Overview: Added automatically from request for surgery [id number] Essential hypertension 06/23/2017 History of coronary artery stent placement 11/05/2016 Unilateral inguinal hernia without obstruction or gangrene 11/05/2016 Hernia, inguinal, right 11/05/2016 Benign prostatic hyperplasia 10/22/2015 Coronary artery disease involving [place] coronary artery of [place] heart 10/21 without angina pectoris Gastroesophageal reflux disease 10/22/2015 Depression 10/22/2015 Goiter 10/22/2015 Hypercholesteremia 10/22/2015 Neck pain 10/22/2015 Encounters Date Type Specialty Care Team Description 05/16/2018 Refill Family Medicine Luh Humphreys, DO after 02/28/2018 Immunizations Name Dates Previously Given Next Due [...] PPSV23) 2013 08/29/2017 INFLUENZA VACCINE 03/22/2019 05/22/2014 COLONOSCOPY SCREENING 08/22/2023 08/22/2013 Results Not on fileafter 02/28/2018 Advance Directives Patient has advance care planning documents on file. For more information, please contact:[place] [address]
[2019-03-01] MEDS ORDERED: ONDANSETRON 4 MG/2 ML VIAL ONE (18:33)
[2019-03-01] MEDS ORDERED: MORPHINE 4 MG/ML SYR ONE (18:33)
[2019-03-01] MEDS ORDERED: FAMOTIDINE 20 MG/2 ML VIAL IV ONE (18:33)
[2019-03-01 18:36] LABS: Basophils % 0.7 % (0-1.3); Eosinophils % 2.2 % (0-4.4); Hematocrit 49.9 % (39.6-49.0); Lymphocytes % 23.3 % (15.3-44.8); MPV 9.2 fL (7.6-11.3); Monocytes % 11.1 % (3.3-12.3)
[2019-03-01 18:44] LABS: ALT/SGPT 27 U/L (12-78); AST/SGOT 14 U/L (15-37); Albumin 3.5 g/dL (3.4-5.0); Alkaline Phosphatase 109 U/L (45-117); BUN Blood Urea Nitrogen 14 mg/dL (7-18); Bicarbonate 24 mmol/L (21-32); Bilirubin Direct < 0.1 mg/dL (0-0.2); Bilirubin Total 0.4 mg/dL (0.2-1.0); Glucose Level 92 mg/dL (74-106); Lipase 185 U/L (73-393); Potassium 3.7 mmol/L (3.5-5.1); Protein, Total 7.6 g/dL (6.4-8.2); Sodium Level 143 mmol/L (136-145)
--- NOTE | 2019-03-01 19:22 | RAD REPORT ---
EXAM DESCRIPTION: CTAbdomen Pelvis W Contrast - 03/01/2019 7:00 pm CLINICAL HISTORY: Abdominal pain. lower abdominal pain COMPARISON: <Comparisons> TECHNIQUE: Biphasic CT imaging of the abdomen and pelvis was performed with 100 ml non-ionic IV cont rast. All CT scans are performed using dose optimization technique as appropriate and may include automated exposure control or mA/KV adjustment according to patient size. FINDINGS: The lung bases are clear.Cholecystectomy clips. The liver, spleen, pancreas, adrenal glands and kidneys are within normal limits. No bowel obstruction, free air, free fluid or abscess. A moderate right inguinal hernia is present co ntaining a small bowel loop. Evidence of incarceration is not seen although there is mild narrowing o f the small bowel loop entering the hernia sac. The appendix is not identified as a discrete structur e, however, no secondary findings of appendicitis are identified. Small fat containing left inguinal hernia. No evidence of significant lymphadenopathy. Mild prostatomegaly projecting into the bladder base. No suspicious bony findings. IMPRESSION: Moderate right inguinal hernia containing small bowel without evidence incarceration.
--- NOTE | 2019-03-01 20:01 | EDPHYS ---
Physician Documentation [facility] Name: Keaton Walker Jr Age: 68 yrs Sex: Male : 1950 Arrival Date: 03/01/2019 Time: 16:04 Bed 24 Private MD: ED Physician Rosas Goddard HPI: 03/01 17:57 This 68 yrs old Male presents to ER via Ambulatory with complaints of Groin jmm Pain - Hernia. 17:57 The patient presents with swelling, that is moderate, of the right inguinal area. jmm Onset: The symptoms/episode began/occurred gradually, 1 year(s) ago. Modifying factors: The symptoms are alleviated by nothing, the symptoms are aggravated by nothing. This is a 68 year old male with a history of CAD, depression, enlarged prostate that presents to the ED with complains of right groin pain. Patient denies vomiting, denies fever. Patient states pain has increased over the past week. . 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 - Social history:: Smoking status: Patient/guardian denies using tobacco. - Ebola Screening: : Patient negative for fever greater than or equal to 101.5 degrees Fahrenheit, and additional compatible Ebola Virus Disease symptoms Patient denies exposure to infectious person. ROS: 17:57 Constitutional: Negative for fever, chills, and weight loss, Cardiovascular: Negative jmm for chest pain, palpitations, and edema, Respiratory: Negative for shortness of breath, cough, wheezing, and pleuritic chest pain. 17:57 Abdomen/GI: Positive for abdominal pain. 17:57 All other systems are negative. Exam: 17:57 Constitutional: This is a well developed, well nourished patient who is awake, alert, jmm and in no acute distress. Head/Face: atraumatic. Eyes: EOMI, no conjunctival erythema appreciated ENT: Moist Mucus Membranes Neck: Trachea midline, Supple Chest/axilla: Normal chest wall appearance and motion. Cardiovascular: Regular rate and rhythm. No edema appreciated Respiratory: Normal respirations, no respiratory distress appreciated 17:57 Skin: General appearance color normal MS/ Extremity: Moves all extremities, no obvious deformities appreciated, no edema noted to the lower extremities Neuro: Awake and alert, normal gait Psych: Behavior is normal, Mood is normal, Patient is cooperative and pleasant 17:57 Abdomen/GI: Inspection: abdomen appears normal, Bowel sounds: normal, Palpation: soft, mild abdominal tenderness, in the right lower quadrant. 17:57 : Male external genitalia: swelling, is noted in the right inguinal area. Vital Signs: 17:24 BP 139 / 88; Pulse 104; Resp 18; Temp 98.5; Pulse Ox 96% on R/A; Weight 88.45 kg; ph Height 5 ft. 10 in. (177.80 cm); Pain 5/10; 18:45 BP 140 / 91; Pulse 80; Resp 18; Temp 97.9(O); Pulse Ox 94% on R/A; mh5 18:45 BP 140 / 91; Pulse 80; Resp 16; Pulse Ox 94% ; Pain 4/10; fu 17:24 Body Mass Index 27.98 (88.45 kg, 177.80 cm) ph MDM: 17:57 Patient medically screened. [facility] 19:59 Data reviewed: vital signs, nurses notes. Counseling: I had a detailed discussion with missy the patient and/or guardian regarding: the historical points, exam findings, and any diagnostic results supporting the discharge/admit diagnosis, lab results, radiology results, the need for outpatient follow up, to return to the emergency department if symptoms worsen or persist or if there are any questions or concerns that arise at home. ED course: Patient is alert and non toxic in appearance in the ED. I discussed with the patient the need for close follow up with Gen surgery. Patient was otherwise given strict return precautions. patient understood and agrees with the plan of care. . 03/01 17:59 Order name: Basic Metabolic Panel; Complete Time: 19:13 [facility] 03/01 17:59 Order name: CBC with Diff; Complete Time: 19:13 [facility] 03/01 17:59 Order name: Creatinine for Radiology; Complete Time: 19:13 [facility] 03/01 17:59 Order name: Hepatic Function; Complete Time: 19:13 [facility] 03/01 17:59 Order name: Lipase; Complete Time: 19:13 [facility] 03/01 17:59 Order name: Lactate; Complete Time: 19:13 [facility] 03/01 17:59 Order name: IV Saline Lock; Complete Time: 18:16 [facility] 03/01 17:59 Order name: Labs collected and sent; Complete Time: 18:16 [facility] 03/01 17:59 Order name: CT Abd/Pelvis - IV Contrast Only; Complete Time: 19:25 [facility] Administered Medications: 18:20 Drug: morphine 4 mg Route: IVP; Site: left antecubital; ao 22:30 Follow up: Response: No adverse reaction ao 18:20 Drug: Zofran 4 mg Route: IVP; Site: left antecubital; ao 20:30 Follow up: Response: No adverse reaction ao 18:22 Drug: Pepcid 20 mg Route: IVP; Site: right forearm; ao 20:30 Follow up: Response: No adverse reaction ao Disposition: 03/02 07:52 Co-signature as Attending Physician, Rosas Goddard MD I agree with the assessment and kdr plan of care. Disposition: 03/01/19 20:00 Discharged to Home. Impression: Inguinal hernia. - Condition is Stable. - Discharge Instructions: Inguinal Hernia, Adult. - Prescriptions for Tylenol- Codeine #3 300-30 mg Oral Tablet - take 1 tablet by ORAL route every 6 hours As needed; 12 tablet. - Medication Reconciliation Form, Thank You Letter, Antibiotic Education, Prescription Opioid Use form. - Follow up: Aamir Robledo MD; When: 2 - 3 days; Reason: Recheck today's complaints, Continuance of care, Re-evaluation by your physician. Signatures: Dispatcher [employer] EDMS Rosas Goddard MD MD kdr Mickail, Joel, PA PA Lizzette Cohn RN RN Mayur Olmos RN RN Aston Lazo RN RN fu Corrections: (The following items were deleted from the chart) 03/01 20:13 20:00 03/01/2019 20:00 Discharged to Home. Impression: Inguinal hernia. Condition is fu Stable. Forms are Medication Reconciliation Form, Thank You Letter, Antibiotic Education, Prescription Opioid Use. Follow up: Aamir Robledo; When: 2 - 3 days; Reason: Recheck today's complaints, Continuance of care, Re-evaluation by your physician. [email or web address]
--- NOTE | 2019-03-01 20:01 | ER ---
Nurse's Notes [facility] Name: Keaton Walker Jr Age: 68 yrs Sex: Male : 1950 Arrival Date: 03/01/2019 Time: 16:04 Bed 24 Private MD: Diagnosis: Inguinal hernia Presentation: 03/01 17:22 Presenting complaint: Patient states: Hernia to R groin x approx 1 year, pain worse ph over past week, states, " I was supposed to have surgery a while back but I couldn't because I ended up having part of my colon removed.". Transition of care: patient was not received from another setting of care. Onset of symptoms was March 01, 2019. Risk Assessment: Do you want to hurt yourself or someone else? Patient reports no desire to harm self or others. Initial Sepsis Screen: Does the patient meet any 2 criteria? No. Patient's initial sepsis screen is negative. Does the patient have a suspected source of infection? No. Patient's initial sepsis screen is negative. Care prior to arrival: None. 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 - Social history:: Smoking status: Patient/guardian denies using tobacco. - Ebola Screening: : Patient negative for fever greater than or equal to 101.5 degrees Fahrenheit, and additional compatible Ebola Virus Disease symptoms Patient denies exposure to infectious person. Screenin:24 Abuse screen: Denies threats or abuse. Denies injuries from another. Nutritional ao screening: No deficits noted. Tuberculosis screening: No symptoms or risk factors identified. Fall Risk None identified. Assessment: 18:40 General: Appears in no apparent distress. comfortable, Behavior is calm, cooperative, ao appropriate for age. Pain: Complains of pain in abdomen. Neuro: Level of Consciousness is awake, alert, obeys commands, Oriented to person, place, time, situation, Appropriate for age Speech is normal. Cardiovascular: Heart tones S1 S2. Respiratory: Airway is patent Respiratory effort is even, unlabored, Respiratory pattern is regular, symmetrical. GI: No signs and/or symptoms were reported involving the gastrointestinal system. : Reports pain lower quadrant(s) Hernia. EENT: No signs and/or symptoms were reported regarding the EENT system. Derm: No signs and/or symptoms reported regarding the dermatologic system. Musculoskeletal: Circulation, motion, and sensation intact. Range of motion: intact in all extremities. Vital Signs: 17:24 BP 139 / 88; Pulse 104; Resp 18; Temp 98.5; Pulse Ox 96% on R/A; Weight 88.45 kg; ph Height 5 ft. 10 in. (177.80 cm); Pain 5/10; 18:45 BP 140 / 91; Pulse 80; Resp 18; Temp 97.9(O); Pulse Ox 94% on R/A; mh5 18:45 BP 140 / 91; Pulse 80; Resp 16; Pulse Ox 94% ; Pain 4/10; fu 17:24 Body Mass Index 27.98 (88.45 kg, 177.80 cm) ph ED Course: 16:04 Patient arrived in ED. as 17:23 Triage completed. ph 17:25 Arm band placed on. ph 17:25 Patient has correct armband on for positive identification. Placed in gown. Bed in low mh5 position. Call light in reach. Side rails up X 1. Warm blanket given. Pulse ox on. NIBP on. 17:46 Tip Caraballo PA is PHCP. [facility] 17:46 Rosas Goddard MD is Attending Physician. jmm 18:10 Inserted saline lock: 20 gauge in right antecubital area, using aseptic technique. ao 18:13 Radiology exam delayed due to lab results not completed at this time. (BUN/Creatinine). jg6 18:15 Mayur Olmos, RN is Primary Nurse. ao 18:[address] nj 19:00 CT completed. Patient tolerated procedure well. Patient moved back from CT. nj 19:00 CT Abd/Pelvis - IV Contrast Only In Process Unspecified. EDMS 19:52 Nurse Practitioner and/or Physician Clinical Resource Manager to see patient. fu 19:59 Aamir Robledo MD is Referral Physician. jmm 20:11 No provider procedures requiring assistance completed. IV discontinued, intact, fu bleeding controlled, No redness/swelling at site. Pressure dressing applied. Administered Medications: 18:20 Drug: morphine 4 mg Route: IVP; Site: left antecubital; ao 22:30 Follow up: Response: No adverse reaction ao 18:20 Drug: Zofran 4 mg Route: IVP; Site: left antecubital; ao 20:30 Follow up: Response: No adverse reaction ao 18:22 Drug: Pepcid 20 mg Route: IVP; Site: right forearm; ao 20:30 Follow up: Response: No adverse reaction ao Outcome: 20:00 Discharge ordered by MD. louis 20:11 Condition: improved fu 20:11 Discharge instructions given to patient, Instructed on discharge instructions, follow up and referral plans. Demonstrated understanding of instructions, follow-up care, medications, Prescriptions given X 1. 20:12 Discharged to home fu 20:13 Patient left the ED. fu Signatures: Dispatcher [employer] EDMS Tip Caraballo PA PA jmm Martinez, Amelia as Hall, Patricia, RN RN Mayur Olmos RN RN ao Jordan, Nathan nj Martinez, Maria [facility] Aston Duran RN RN fu Garcia, Jessica jg6
[2019-03-01 20:19] VITALS: BP 140/91; TEMP 97.9; O2SAT 94
== END 2019-03-01 20:13 | disposition home or self-care (01) ==
LOC: ER 16:03
DX: K40.90 Unilateral inguinal hernia, without obstruction or gangrene, not specified as recurrent (principal); I10 Essential (primary) hypertension; Z95.818 Presence of other cardiac implants and grafts
CPT/HCPCS: 36415; 74177; 80048; 80076; 83605; 83690; 85025; 99284; J2405; Q9967

== ENCOUNTER 2019-03-09 20:12 | Inpatient (IN) | payer OTHER ==
--- OUTSIDE RECORDS SUMMARY | 2019-03-09 20:15 | XMS REPORT | Clinical Summary ---
:[address] [facility] Address [address] [place] [address] Care Team Providers Name Role Phone Luh [...] Overview: Added automatically from request for surgery [id number] Essential hypertension 06/23/2017 History of coronary artery stent placement 11/05/2016 Unilateral inguinal hernia without obstruction or gangrene 11/05/2016 Hernia, inguinal, right 11/05/2016 Benign prostatic hyperplasia 10/22/2015 Coronary artery disease involving [place] coronary artery of [place] heart 10/21 without angina pectoris Gastroesophageal reflux disease 10/22/2015 Depression 10/22/2015 Goiter 10/22/2015 Hypercholesteremia 10/22/2015 Neck pain 10/22/2015 Encounters Date Type Specialty Care Team Description 05/16/2018 Refill Family Medicine Luh Humphreys, DO after 03/08/2018 Immunizations Name Dates Previously Given Next Due [...] SCREENING 08/22/2023 08/22/2013 Results Not on fileafter 03/08/2018 Advance Directives Patient has advance care planning documents on file. For more information, please contact:[place] [address]
[2019-03-09 21:32] LABS: Albumin 3.6 g/dL (3.4-5.0); Bilirubin Direct 0.2 mg/dL (0-0.2); Bilirubin Total 0.8 mg/dL (0.2-1.0); Potassium 3.7 mmol/L (3.5-5.1); Protein, Total 7.8 g/dL (6.4-8.2)
[2019-03-09 21:39] LABS: Absolute Lymphocytes (CBC) 1.3 K/uL (0.7-4.9); Basophils % 0.2 % (0-1.3); Hematocrit 51.4 % (39.6-49.0); Lymphocytes % 10.8 % (15.3-44.8); MPV 8.9 fL (7.6-11.3); RBC Red Blood Cell Count 5.85 M/uL (4.33-5.43)
[2019-03-09] MEDS ORDERED: ONDANSETRON 4 MG/2 ML VIAL ONE (21:53)
[2019-03-09] MEDS ORDERED: NA CHLORIDE 0.9% 1,000 ML ONE (22:20)
[2019-03-09] MEDS ORDERED: METRONIDAZOLE 500mg IVPB 500 MG/100 ML BAG IV ONE (23:55)
[2019-03-09] MEDS ORDERED: CIPROFLOXACIN 400mg IV 400 MG/200 ML BAG IV ONE (23:55)
--- NOTE | 2019-03-09 23:55 | ER ---
Nurse's Notes [facility] Name: Keaton Walker Jr Age: 68 yrs Sex: Male : 1950 Arrival Date: 03/09/2019 Time: 20:16 Bed 26 Private MD: Diagnosis: Developing small bowel obstruction Presentation: 03/09 20:17 Presenting complaint: Patient states: "I was in here about a week ago for my hernia, aj1 they told me to come back if I started feeling worse and I definitely am. I haven't had a bowel movement in a week. " Patient reports that he is supposed to have surgery as soon as he is cleared by cardiology. Patient reports nausea. Denies vomiting. Patient also states that he has not been taking any of his regular medications for several months now. Transition of care: patient was not received from another setting of care. Onset of symptoms was March 09, 2019. Risk Assessment: Do you want to hurt yourself or someone else? Patient reports no desire to harm self or others. Initial Sepsis Screen: Does the patient meet any 2 criteria? HR > 90 bpm. No. Patient's initial sepsis screen is negative. Does the patient have a suspected source of infection? Yes: Acute abdominal pain. Care prior to arrival: None. 20:17 Method Of Arrival: Ambulatory aj 20:17 Acuity: MERY 3 aj1 Triage Assessment: 20:22 General: Appears in no apparent distress. uncomfortable, Behavior is calm, cooperative, aj1 appropriate for age. Pain: Complains of pain in abdomen diffusely Pain currently is 4 out of 10 on a pain scale. Neuro: Level of Consciousness is awake, alert, obeys commands. Cardiovascular: Patient's skin is warm and dry. Respiratory: Airway is patent Respiratory effort is even, unlabored, Respiratory pattern is regular, symmetrical. 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 - Social history:: Smoking status: Patient/guardian denies using tobacco. - Ebola Screening: : Patient denies travel to an Ebola-affected area in the 21 days before illness onset. Screenin:34 Abuse screen: Denies threats or abuse. Denies injuries from another. Nutritional wh screening: No deficits noted. Tuberculosis screening: No symptoms or risk factors identified. Fall Risk None identified. Assessment: 21:01 General: Appears in no apparent distress. Behavior is calm, cooperative, appropriate wh for age. Pain: Denies pain. Neuro: Level of Consciousness is awake, alert, obeys commands, Oriented to person, place, time, situation, Appropriate for age. Cardiovascular: Heart tones S1 S2. Respiratory: Airway is patent Respiratory effort is even, unlabored, Respiratory pattern is regular, symmetrical, Breath sounds are clear bilaterally. GI: Abdomen is round firm Bowel sounds present X 4 quads. Abd is non tender firm Reports constipation, nausea. : No signs and/or symptoms were reported regarding the genitourinary system. EENT: No signs and/or symptoms were reported regarding the EENT system. Derm: Skin is intact, is healthy with good turgor, Skin is pink, warm \\T\\ dry. normal. Musculoskeletal: Range of motion: intact in all extremities. 22:24 Reassessment: Patient appears in no apparent distress at this time. Patient and/or family updated on plan of care and expected duration. Pain level reassessed. Patient is alert, oriented x 3, equal unlabored respirations, skin warm/dry/pink. 23:34 Reassessment: Patient appears in no apparent distress at this time. Patient and/or wh family updated on plan of care and expected duration. Pain level reassessed. Patient is alert, oriented x 3, equal unlabored respirations, skin warm/dry/pink. Patient states feeling better. Patient states symptoms have improved. 03/10 00:32 Reassessment: Patient appears in no apparent distress at this time. Patient and/or family updated on plan of care and expected duration. Pain level reassessed. Patient is alert, oriented x 3, equal unlabored respirations, skin warm/dry/pink. Patient states feeling better. Patient states symptoms have improved. 01:23 Reassessment: Patient appears in no apparent distress at this time. Patient and/or family updated on plan of care and expected duration. Pain level reassessed. Patient is alert, oriented x 3, equal unlabored respirations, skin warm/dry/pink. Patient states feeling better. Patient states symptoms have improved. Vital Signs: 03/09 20:22 BP 163 / 96; Pulse 91; Resp 24; Temp 97.4; Pulse Ox 97% on R/A; Weight 91.17 kg (R); aj1 Height 5 ft. 10 in. (177.80 cm) (R); Pain 4/10; 21:00 BP 149 / 85; Pulse 75; Resp 18; Pulse Ox 96% on R/A; wh 22:30 BP 135 / 75; Pulse 72; Resp 18; Pulse Ox 95% on R/A; wh 23:37 BP 132 / 83; Pulse 72; Resp 18; Pulse Ox 98% on R/A; 03/10 00:24 BP 132 / 74; Pulse 71; Resp 18; Pulse Ox 97% on R/A; mg2 01:15 BP 125 / 73; Pulse 65; Resp 18; Pulse Ox 97% on R/A; wh 03/09 20:22 Body Mass Index 28.84 (91.17 kg, 177.80 cm) [facility] ED Course: 03/09 20:16 Patient arrived in ED. 20:19 Triage completed. [facility] 20:22 Arm band placed on Patient placed in an exam room. [facility] 20:27 Erick Duval is Primary Nurse. 20:28 Clemente Marie PA is PHCP. 20:28 Rosas Goddard MD is Attending Physician. 21:02 Inserted saline lock: 20 gauge in right forearm, using aseptic technique. Blood collected. 21:04 Patient has correct armband on for positive identification. Bed in low position. Call light in reach. Side rails up X 1. Pulse ox on. NIBP on. 22:29 CT Abd/Pelvis - IV Contrast Only In Process Unspecified. EDMS 23:53 Lisa Shepard MD is Hospitalizing Provider. 03/10 01:24 No provider procedures requiring assistance completed. Patient admitted, IV remains in place. Administered Medications: 03/09 21:40 Drug: Zofran 4 mg Route: IVP; Site: right forearm; mg2 23:37 Follow up: Response: No adverse reaction 22:52 Drug: NS 0.9% 500 ml Route: IV; Rate: bolus; Site: right forearm; 23:38 Follow up: Response: No adverse reaction; IV Status: Completed infusion 23:24 Drug: NS 0.9% 500 ml Route: IV; Rate: 100 ml/hr; Site: right antecubital; 03/10 01:25 Follow up: Response: No adverse reaction; IV Status: Completed infusion 03/09 23:42 Drug: Cipro 400 mg Volume: 200 ml; Route: IVPB; Infused Over: 60 mins; Site: right forearm; 03/10 01:26 Follow up: Response: No adverse reaction; IV Status: Completed infusion 00:33 Drug: metroNIDAZOLE 500 mg Volume: 100 ml; Route: IVPB; Infused Over: 30 mins; Site: right forearm; 01:26 Follow up: Response: No adverse reaction; IV Status: Completed infusion Outcome: 03/09 23:54 Decision to Hospitalize by Provider. 03/10 01:25 Admitted to Med/surg accompanied by nurse, via wheelchair, room 210, with chart, Report called to Ros COLEMAN Condition: good Instructed on the need for admit. 01:26 Patient left the ED. Signatures: Dispatcher [employer] Maria Elena Figueroa RN RN aj1 Brittany Fair Corey, PA PA [facility] Sacha Contreras RN RN mg2 Corrections: (The following items were deleted from the chart) 03/09 20:22 20:17 Presenting complaint: Patient states: "I was in here about a week ago for my aj1 hernia, they told me to come back if I started feeling worse and I definitely am. I haven't had a bowel movement in a week. " Patient reports that he is supposed to have surgery as soon as he is cleared by cardiology. Patient reports nausea. Denies vomiting. aj1
--- NOTE | 2019-03-09 23:55 | EDPHYS ---
Physician Documentation [facility] Name: Keaton Walker Jr Age: 68 yrs Sex: Male : 1950 Arrival Date: 03/09/2019 Time: 20:16 Bed 26 Private MD: ED Physician Rosas Goddard HPI: 03/09 21:00 This 68 yrs old Male presents to ER via Ambulatory with complaints of HERNIA. cp 21:00 The patient presents with constipation, nausea. Onset: The symptoms/episode cp began/occurred 1 week(s) ago. Associated signs and symptoms: Pertinent negatives: chest pain, diarrhea, dysuria, fever, testicular pain, vomiting. Patient reports he has been passing gas and has not had normal bowel movement for 1 week. 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 - Social history:: Smoking status: Patient/guardian denies using tobacco. - Ebola Screening: : Patient denies travel to an Ebola-affected area in the 21 days before illness onset. ROS: 21:05 Constitutional: Negative for body aches, chills, fever, poor PO intake. cp 21:05 Eyes: Negative for injury, pain, redness, and discharge. cp 21:05 Cardiovascular: Negative for chest pain, edema, palpitations. cp 21:05 ENT: Negative for drainage from ear(s), ear pain, sore throat, difficulty swallowing, cp difficulty handling secretions. 21:05 Respiratory: Negative for cough, shortness of breath, wheezing. 21:05 Abdomen/GI: Positive for nausea, constipation, Negative for abdominal pain, vomiting, diarrhea, anorexia, black/tarry stool, rectal bleeding. 21:05 Back: Negative for pain at rest, pain with movement, radiated pain. 21:05 : Negative for urinary symptoms, flank pain, testicular pain 21:05 Skin: Negative for rash. 21:05 Neuro: Negative for altered mental status, dizziness, headache, weakness. 21:05 All other systems are negative. Exam: 21:25 Head/Face: Normocephalic, atraumatic. cp 21:25 Constitutional: The patient appears in no acute distress, alert, awake, non-diaphoretic, non-toxic, well developed, well nourished. 21:25 Eyes: Periorbital structures: appear normal, Conjunctiva: normal, no exudate, no injection, Sclera: no appreciated abnormality, Lids and lashes: appear normal, bilaterally. 21:25 ENT: External ear(s): are unremarkable, Nose: is normal, Mouth: Lips: moist, Oral mucosa: pink and intact, moist, Posterior pharynx: is normal, airway is patent, no erythema, no exudate. 21:25 Neck: ROM/movement: is normal, is supple, without pain, no range of motions limitations, no nuchal rigidity. 21:25 Chest/axilla: Inspection: normal, Palpation: is normal, no crepitus, no tenderness. 21:25 Cardiovascular: Rate: normal, Rhythm: regular, Edema: is not appreciated, JVD: is not appreciated. 21:25 Respiratory: the patient does not display signs of respiratory distress, Respirations: normal, no use of accessory muscles, no retractions, no splinting, no tachypnea, labored breathing, is not present, Breath sounds: are clear throughout, no decreased breath sounds, no stridor, no wheezing. 21:25 Abdomen/GI: Inspection: distension, that is mild, scar(s), Bowel sounds: active, all quadrants, Palpation: soft, in all quadrants, nontender, in all quadrants, rebound tenderness, is not appreciated, voluntary guarding, is not appreciated, involuntary guarding, is not appreciated. 21:25 Back: pain, is absent, ROM is normal. 21:25 Skin: no rash present. 21:25 Neuro: Orientation: to person, place \\T\\ time. Mentation: is normal, Motor: moves all fours, strength is normal. Vital Signs: 20:22 BP 163 / 96; Pulse 91; Resp 24; Temp 97.4; Pulse Ox 97% on R/A; Weight 91.17 kg (R); aj1 Height 5 ft. 10 in. (177.80 cm) (R); Pain 4/10; 21:00 BP 149 / 85; Pulse 75; Resp 18; Pulse Ox 96% on R/A; wh 22:30 BP 135 / 75; Pulse 72; Resp 18; Pulse Ox 95% on R/A; wh 23:37 BP 132 / 83; Pulse 72; Resp 18; Pulse Ox 98% on R/A; wh 03/10 00:24 BP 132 / 74; Pulse 71; Resp 18; Pulse Ox 97% on R/A; mg2 01:15 BP 125 / 73; Pulse 65; Resp 18; Pulse Ox 97% on R/A; wh 03/09 20:22 Body Mass Index 28.84 (91.17 kg, 177.80 cm) aj1 MDM: 03/09 20:40 Patient medically screened. cp 21:00 Differential diagnosis: bowel obstruction, gastritis, Ureterolithiasis, urinary tract cp infection, fecal impaction, constipation. 23:30 Physician consultation: Aamir Robledo MD was called at 23:20, was contacted at 23:20, cp regarding consult, reports he is out of town and will not be available to see the patient in hospital. 23:38 Data reviewed: vital signs, nurses notes, lab test result(s), radiologic studies, CT cp scan. Physician consultation: Frank Claudio MD was called at 11:25, was contacted at 11:25, regarding consult, patient's condition, would like admission per Dr. Lisa Shepard MD. 03/09 20:48 Order name: Basic Metabolic Panel; Complete Time: 21:52 cp 03/09 20:48 Order name: CBC with Diff; Complete Time: 21:52 cp 03/09 20:48 Order name: Creatinine for Radiology; Complete Time: 21:52 cp 03/09 20:48 Order name: Hepatic Function; Complete Time: 21:52 cp 03/09 20:48 Order name: Lipase; Complete Time: 21:52 cp 03/09 20:48 Order name: Urine Microscopic Only cp 03/09 21:56 Order name: CT Abd/Pelvis - IV Contrast Only cp 03/09 21:56 Order name: Lactate cp 03/09 23:03 Order name: Urine Dipstick--Ancillary (enter results) cm6 03/09 20:48 Order name: IV Saline Lock; Complete Time: 21:04 03/09 20:48 Order name: Labs collected and sent; Complete Time: 21:04 03/09 20:48 Order name: Urine Dipstick-Ancillary (obtain specimen); Complete Time: 22:58 03/09 23:22 Order name: NPO; Complete Time: 23:24 03/10 00:31 Order name: CONS Physician Consult EDPR 03/10 00:31 Order name: NPO EDPR 03/10 00:31 Order name: EKG Electrocardiogram EDPR 03/10 00:31 Order name: EKG Electrocardiogram EDPR Administered Medications: 21:40 Drug: Zofran 4 mg Route: IVP; Site: right forearm; [facility] [place]:37 Follow up: Response: No adverse reaction 22:52 Drug: NS 0.9% 500 ml Route: IV; Rate: bolus; Site: right forearm; 23:38 Follow up: Response: No adverse reaction; IV Status: Completed infusion 23:24 Drug: NS 0.9% 500 ml Route: IV; Rate: 100 ml/hr; Site: right antecubital; 03/10 01:25 Follow up: Response: No adverse reaction; IV Status: Completed infusion 03/09 23:42 Drug: Cipro 400 mg Volume: 200 ml; Route: IVPB; Infused Over: 60 mins; Site: right forearm; 03/10 01:26 Follow up: Response: No adverse reaction; IV Status: Completed infusion 00:33 Drug: metroNIDAZOLE 500 mg Volume: 100 ml; Route: IVPB; Infused Over: 30 mins; Site: right forearm; 01:26 Follow up: Response: No adverse reaction; IV Status: Completed infusion Disposition: 05:58 Co-signature as Attending Physician, Rosas Goddard MD I agree with the assessment and kdr plan of care. Disposition: 03/09/19 23:54 Hospitalization ordered by Lisa Shepard for Inpatient Admission. Preliminary diagnosis is Developing small bowel obstruction. - Bed requested for Telemetry/MedSurg (Inpatient). - Status is Inpatient Admission. - Condition is Stable. - Problem is new. - Symptoms have improved. UTI on Admission? No Signatures: Dispatcher [employer] EDMS Maria Elena Hernandez RN RN aj1 Rosas Goddard MD MD kdr Ballard, Brenda RN RN bb Clemente Marie PA PA cp Habalo, Erick Diane, Sacha, RN RN mg2 Corrections: (The following items were deleted from the chart) 00:37 03/09 23:54 Hospitalization Ordered by Lisa Shepard MD for Inpatient Admission. bb Preliminary diagnosis is Developing small bowel obstruction. Bed requested for Telemetry/MedSurg (Inpatient). Status is Inpatient Admission. Condition is Stable. Problem is new. Symptoms have improved. UTI on Admission? No. cp 03/10 01:26 00:37 03/09/2019 23:54 Hospitalization Ordered by Lisa Shepard MD for Inpatient Admission. Preliminary diagnosis is Developing small bowel obstruction. Bed requested for Telemetry/MedSurg (Inpatient). Status is Inpatient Admission. Condition is Stable. Problem is new. Symptoms have improved. UTI on Admission? No. bb
[2019-03-10] MEDS ORDERED: ACETAMINOPHEN 650MG/RECT SUPP RECT PRN (00:19)
[2019-03-10] MEDS ORDERED: MAGNESIUM HYDROXIDE 8% 30 ML PO PRN (00:19)
[2019-03-10] MEDS ORDERED: ONDANSETRON 4 MG/2 ML VIAL IV PRN (00:19)
[2019-03-10] MEDS ORDERED: HYDROMORPHONE HCL 1 MG/ML INJ IV PRN (00:19)
[2019-03-10] MEDS ORDERED: ACETAMINOPHEN 500 MG TAB PO PRN (00:19)
[2019-03-10 02:05] LABS: Urine Blood NEGATIVE (NEG); Urine Glucose NEGATIVE (NEG); Urine Protein NEGATIVE (NEG); Urine Specific Gravity 1.015 (1.005-1.030)
[2019-03-10 02:24] LABS: Urine Bacteria <20 /HPF (NONE SEEN); Urine Culture Reflex Order NOT NEEDED; Urine RBC <5 /HPF (NONE SEEN)
[2019-03-10 03:24] VITALS: BMI 29.2
[2019-03-10] MEDS ORDERED: CEFOXITIN SODIUM 1 GM/VIAL IVPB SCH (06:00)
[2019-03-10] MEDS: METRONIDAZOLE 500mg IVPB 500 MG/100 ML BAG IV SCH ×4 (06:18→23:24)
[2019-03-10] MEDS: NA CHLORIDE 0.9% 1,000 ML IV SCH ×3 (06:18→23:25)
[2019-03-10] MEDS ORDERED: KCL 20 MEQ/100 mL IVPB 20 MEQ/100 ML BAG IV SCH (09:00)
[2019-03-10] MEDS: CEFOXITIN/SWI 1gm 1 GM/10 ML SYR IV SCH ×3 (09:29→20:32)
[2019-03-10] MEDS ORDERED: SODIUM CHLORIDE 0.9% 10ML INJ IV PRN (11:35)
--- NOTE | 2019-03-10 13:17 | P.CNS ---
Date of Consult: 03/10/19 PC: This 68-year-old male presents emergency room with abdominal pain for diagnosis and treatment. HPC: Patient is a past history of having exploratory laparotomy with small- bowel resection. Has noticed the last 2 days he had the same kind of feeling going on in his abdominal cavity. He also has a hernia that is supposed to be scheduled for repair next week. PMH: Negative PSHx: Exploratory laparotomy with small-bowel resection for obstruction SOC: No known drug allergies SYS REVIEW: No cough, wheeze, shortness of breath. No chest pain or palpitations. Says he has been relatively good shape. Has noticed however his hernia has been slightly tender and feels a little full these last few days. O/E awake alert comfortable HEENT: Within normal limits Chest: Clear ABD: Soft nontender has a hernia palpable in the right lower quadrant but reducible LOCO: Intact DATA: CT scan apparently shows possible early development of small bowel obstruction IMPRESSION: This patient, who was admitted with possible early small-bowel obstruction has had bowel movements since he has been in the hospital. His abdomen is benign at the moment. He was scheduled have elective procedure done next week. We will observe for another 24 hr. He has not require emergent surgical intervention at the moment. PLAN: May advance diet as tolerated. Will reassess in the a.m..
[2019-03-10] MEDS: ENOXAPARIN 30 MG/0.3 ML SQ SCH (17:08)
--- NOTE | 2019-03-10 23:51 | P.HP ---
Certification for Inpatient Patient admitted to: Inpatient With expected LOS: >2 Midnights Patient will require the following post-hospital care: None Practitioner: I am a practitioner with admitting privileges, knowledge of patient current condition, hospital course, and medical plan of care. Services: Services provided to patient in accordance with Admission requirements found in Title 42 Section 412.3 of the Code of Federal Regulations Patient History Date of Service: 03/10/19 Reason for admission: small-bowel obstruction History of Present Illness: Patient is a 68-year-old gentleman well known to me from multiple prior admissions. He come to the hospital with complaints of abdominal pain. He has had some nausea but no vomiting. He has had did abdominal distention as well. He came to the emergency room for further evaluation. In the ER he was found to have severe abdominal pain. He also had abdominal distention. He came to the ER for further evaluation. In the ER his workup revealed a possible small bowel obstruction secondary to internal hernia. General surgery will be consulted. Patient was in the emergency room a few weeks ago with similar complaints. He was to follow up with his general surgeon and had scheduled a outpatient cardiology consultation for cardiac clearance prior to hernia surgery. We may need to do cardiology consultation while in house. Allergies No Known Drug Allergies Allergy (Verified 03/10/19 05:29) Unknown Home Medications: Bupropion *Xl* [Wellbutrin XL] 150 mg PO BID 03/10/19 Clopidogrel Bisulfate [Plavix] 75 mg PO DAILY 03/10/19 Isosorbide Dinitrate 30 mg PO DAILY 03/10/19 Ranitidine [Zantac] 150 mg PO BID 03/10/19 Tamsulosin [Flomax*] 1 cap PO BID 03/10/19 - Past Medical/Surgical History Has patient received pneumonia vaccine in the past: Yes Diabetic: No -: HTN -: Hyperlipidemia -: CAD, 2001-stent placed -: Depression -: BPH -: GERD -: Cardiac stent placement 2001 -: Left knee surgery 2009 -: Cholecystectomy 2009 -: Tonsilectomy -: Benign growth on testicle removed Psychosocial/ Personal History: The patient is a . He lives by himself. 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 He has 1 child. - Family History Father Medical History: Lung disease, Cancer Notes: Mesothelioma Mother Medical History: Heart disease, Hypertension Sister Notes: well - Social History Smoking Status: Never smoker Alcohol use: Yes CD- Drugs: No Caffeine use: Yes Place of Residence: Home Review of Systems 10-point ROS is otherwise unremarkable Physical Examination - Vital Signs Temperature: 99.0 F Blood Pressure: 137/76 Pulse: 59 Respirations: 18 Pulse Ox (%): 94 - Physical Exam General: Alert, In no apparent distress, Oriented x3 HEENT: Atraumatic, PERRLA, Mucous membr. moist/pink, EOMI, Sclerae nonicteric Neck: Supple, 2+ carotid pulse no bruit, No LAD, Without JVD or thyroid abnormality Respiratory: Clear to auscultation bilaterally, Normal air movement Cardiovascular: Regular rate/rhythm, Normal S1 S2, No murmurs Gastrointestinal: Hypoactive, No rebound, No guarding, Distended, Tenderness Musculoskeletal: No clubbing, No swelling, No tenderness Integumentary: No rashes Neurological: Normal gait, Normal speech, Normal strength at 5/5 x4 extr, Normal tone, Sensation intact, Cranial nerves 3-12 intact, Normal affect Lymphatics: No axilla or inguinal lymphadenopathy Assessment & Plan - Problems (Diagnosis) (1) SBO (small bowel obstruction) Current Visit: Yes Status: Acute (2) Hernia Current Visit: Yes Status: Acute (3) Coronary arteriosclerosis Current Visit: No Status: Active (4) Ischemic bowel disease Current Visit: No Status: Acute (5) Renal insufficiency Current Visit: No Status: Acute (6) BPH (benign prostatic hypertrophy) Onset Date: 03/08/16 Current Visit: No Status: Chronic Qualifiers: Lower urinary tract symptom presence: unspecified whether lower urinary tract symptoms present Qualified Code(s): N40.0 - Benign prostatic hyperplasia without lower urinary tract symptoms (7) CAD (coronary artery disease) Onset Date: 03/08/16 Current Visit: No Status: Chronic Qualifiers: (8) Depression with anxiety Onset Date: 08/30/17 Current Visit: No Status: Chronic - Plan -management per surgery - if surgery is needed will need cardiac clearance -DVT prophylaxis with SCDs -IV hydration and IV antibiotics -NPO -strict blood pressure and blood sugar control -monitor electrolytes and blood count closely -pain control -patient is refusing NG tube at this time. If nausea or vomiting then will go ahead and place and monitor for abdominal distention. Discharge Plan: Home Plan to discharge in: Greater than 2 days - Advance Directives Does patient have a Living Will: No Does patient have a Durable POA for Healthcare: No - Code Status/Comfort Care Code Status Assessed: Yes Code Status: Full Code Critical Care: No Time Spent Managing PTS Care (In Minutes): 45
[2019-03-11] MEDS: CEFOXITIN/SWI 1gm 1 GM/10 ML SYR IV SCH ×4 (04:09→20:47)
[2019-03-11 05:38] LABS: Absolute Lymphocytes (CBC) 1.4 K/uL (0.7-4.9); Basophils % 0.3 % (0-1.3); Hematocrit 43.2 % (39.6-49.0); Lymphocytes % 23.6 % (15.3-44.8); MPV 8.7 fL (7.6-11.3); RBC Red Blood Cell Count 4.95 M/uL (4.33-5.43)
[2019-03-11 05:54] LABS: Albumin 3.1 g/dL (3.4-5.0); Bilirubin Total 0.7 mg/dL (0.2-1.0); Magnesium 1.9 mg/dL (1.8-2.4); Phosphorus 2.8 mg/dL (2.5-4.9); Potassium 3.5 mmol/L (3.5-5.1); Protein, Total 6.1 g/dL (6.4-8.2)
[2019-03-11] MEDS: METRONIDAZOLE 500mg IVPB 500 MG/100 ML BAG IV SCH ×4 (06:39→23:17)
[2019-03-11] MEDS: PANTOPRAZOLE 40 MG INJ IVP SCH ×2 (09:03→10:34)
[2019-03-11] MEDS: ENOXAPARIN 30 MG/0.3 ML SQ SCH (09:04)
[2019-03-11] MEDS ORDERED: POTASSIUM CL SA 10 MEQ TAB PO ONE (11:00)
--- NOTE | 2019-03-11 13:48 | P.PN ---
Subjective Date of Service: 03/11/19 Chief Complaint: small-bowel obstruction Subjective: Improving Patient seen and examined at bedside. No family at bedside. Chart reviewed and case discussed with nursing staff. Review of Systems 10-point ROS is otherwise unremarkable Physical Examination - Vital Signs Temperature: 98.3 F Blood Pressure: 148/71 Pulse: 60 Respirations: 16 Pulse Ox (%): 93 - Physical Exam General: Alert, In no apparent distress, Oriented x3 HEENT: Atraumatic, PERRLA, EOMI Neck: Supple, JVD not distended Respiratory: Clear to auscultation bilaterally, Normal air movement Cardiovascular: Regular rate/rhythm, Normal S1 S2 Gastrointestinal: Normal bowel sounds, Distended, Tenderness Musculoskeletal: No tenderness Integumentary: No rashes Neurological: Normal speech, Normal tone, Normal affect Lymphatics: No axilla or inguinal lymphadenopathy Assessment And Plan - Plan -management per surgery: Will discuss with Dr. Robledo tomorrow. - no emergent surgical intervention required at this time -DVT prophylaxis with SCDs -IV hydration -advanced to clear liquid diet -strict blood pressure and blood sugar control -monitor electrolytes and blood count closely -pain control -patient is refusing NG tube at this time. If nausea or vomiting then will go ahead and place and monitor for abdominal distention. Plan: With discuss with surgeon tomorrow
[2019-03-11] MEDS: NA CHLORIDE 0.9% 1,000 ML IV SCH ×2 (15:15→17:00)
--- NOTE | 2019-03-11 17:05 | P.PN ---
Date of Service: 03/11/19 S: The patient up ambulating, no real complaints tolerating full liquids. O: Abdomen is soft, white cell count down to 5 A: Surgically stable P: Will make the patient NPO at midnight. Dr Best can evaluate in a.m..
[2019-03-12] MEDS: CEFOXITIN/SWI 1gm 1 GM/10 ML SYR IV SCH ×4 (02:39→22:07)
[2019-03-12 05:28] LABS: Magnesium 1.9 mg/dL (1.8-2.4); Phosphorus 2.4 mg/dL (2.5-4.9); Potassium 3.9 mmol/L (3.5-5.1)
[2019-03-12] MEDS: METRONIDAZOLE 500mg IVPB 500 MG/100 ML BAG IV SCH ×3 (05:28→17:24)
[2019-03-12] MEDS: NA CHLORIDE 0.9% 1,000 ML IV SCH (06:00)
[2019-03-12] MEDS ORDERED: POTASSIUM PHOS IN 0.9 % NACL 15 MMOL/250 ML BAG IV ONE ×2 (06:57→07:30)
[2019-03-12] MEDS ORDERED: KCL 20 MEQ/100 mL IVPB 20 MEQ/100 ML BAG IV SCH (07:00)
[2019-03-12] MEDS: ENOXAPARIN 30 MG/0.3 ML SQ SCH (08:06)
[2019-03-12] MEDS: PANTOPRAZOLE 40 MG INJ IVP SCH (08:08)
--- NOTE | 2019-03-12 10:18 | EKG ---
Test Date: 2019-03-11 Test Time: 18:26:11 Estate Planning Director: MAKENNA MEASUREMENT RESULTS: Intervals: Rate: 66 CO: 182 QRSD: 128 QT: 408 QTc: 427 [employer]: P: 29 CO: 182 QRS: -60 T: -16 INTERPRETIVE STATEMENTS: Normal sinus rhythm Left axis deviation Incomplete right bundle branch block Abnormal ECG Compared to ECG 11/28/2018 08:12:02 Left-axis deviation now present Sinus bradycardia no longer present Electronically Signed On 03-12-19 10:19:41 CDT by Manoj Siddiqui
--- NOTE | 2019-03-12 11:56 | RAD REPORT ---
EXAM DESCRIPTION: CT - Abdomen Pelvis W Contrast - 03/10/2019 3:32 am CLINICAL HISTORY: 68 years Male CONSTIPATION COMPARISON: March 01, 2019. TECHNIQUE: Images were obtained in axial, sagittal, and coronal planes. Intravenous contrast was adm inistered. This exam was performed according to our departmental dose-optimization program which includes use of Automated Exposure Control, adjustment of the mA and/or kV according to patient size and/or use of i terative reconstruction technique FINDINGS: Surgical clips left abdomen with ileocolic anastomosis present. Dilated fluid-filled small bowel loops are identified to the level of the anastomosis. Dilated fluid-filled stomach. Developing small bowel obstruction is questioned. Right inguinal hernia which contains nondilated bowel loops. No evidence for incarceration. Appendix within normal limits. No perforation or abscess. No abnormality involving the liver, spleen, pancreas, or adrenal glands bilaterally. Prior cholecyste ctomy. Calcification abdominal aorta with no dilatation seen. Unremarkable portal vein. No adenopathy or abn ormal fluid collections seen. No obstructing renal calcifications bilaterally. No hydronephrosis bilaterally. Enlarged prostate gla nd. Unremarkable bladder. Dependent atelectatic change lower lungs bilaterally. No acute osseous abnormality. IMPRESSION: Prior small bowel resection with ileocolic anastomosis left abdomen. Dilated fluid-fille d stomach and small bowel loops to level of anastomosis. Developing small bowel obstruction questione d. No perforation or abscess. Right inguinal hernia which contains nondilated bowel loops. No evidence for incarceration at this le candida. Electronically signed by: Karmen Sheffield MD 03/09/2019 10:42 PM CDT Due to temporary technical issues with the PACS/Fluency reporting system, reports are being signed by the in house radiologist as a courtesy to ensure prompt reporting. The interpreting radiologist is f ully responsible for the content of the report.
--- NOTE | 2019-03-12 17:30 | P.PN ---
Subjective Date of Service: 03/12/19 Chief Complaint: small-bowel obstruction Patient seen and examined at bedside. No family at bedside. Chart reviewed and case discussed with nursing staff. Case discussed with Dr. Robledo Patient reports improvement in pain. Tolerating clear liquid diet. Review of Systems 10-point ROS is otherwise unremarkable Physical Examination - Vital Signs Temperature: 97.9 F Blood Pressure: 176/80 Pulse: 64 Respirations: 18 Pulse Ox (%): 94 - Physical Exam General: Alert, In no apparent distress, Oriented x3 HEENT: Atraumatic, PERRLA, EOMI Neck: Supple, JVD not distended Respiratory: Clear to auscultation bilaterally, Normal air movement Cardiovascular: Regular rate/rhythm, Normal S1 S2 Gastrointestinal: Normal bowel sounds, No tenderness Musculoskeletal: No tenderness Integumentary: No rashes Neurological: Normal speech, Normal tone, Normal affect Lymphatics: No axilla or inguinal lymphadenopathy Assessment And Plan - Plan -management per surgery, appreciate Dr. Claudio's help. Dr. Rainey, patient's established surgeonm to take over care tomorrow. -IV hydration -Tolerating diet. -strict blood pressure and blood sugar control -pain control -SCDs for DVT prophylaxis Plan: Cardiac clearance for hernia repair with Dr. Robledo tomorrow. Keep NPO after midnight.
--- NOTE | 2019-03-12 20:11 | CON ---
History Of Present Illness: Mr. Walker is 68. He comes to the hospital with abdominal pain. He seem s to have some kind of bowel obstruction. I am asked to evaluate his heart before going through surg june. A year and a half ago, the patient had small bowel obstruction. He had a small bowel resection for ischemic bowel. He did well without any cardiac complications. Mr. Walker does have a history o f heart disease. In 2001, he had a stent placed in a coronary artery. We do not know which one. We do not have records from that. In 2015, he had a cardiac cath that showed his arteries were widely patent except for small side branches of the circumflex. There was no need for a coronary interventi on and he has done well since then without any further angina. He had symptoms that we thought could have possibly been due to the heart, and in November 2018, three months ago, we did a stress test that was normal. There was no ischemia or scar. The patient is not having angina. Medications: His outpatient medications are Plavix, Wellbutrin, ranitidine, tamsulosin, and isosorbi de dinitrate. Allergies: HE HAS NO ALLERGIES. Social History: Does not use tobacco now. Physical Examination: General: 5 feet 10 inches, 204 pounds, body mass index 29. HEENT: Normal. Lungs: Clear. Cardiac: Within normal limits. Abdomen: Soft. Extremities: Palpable pulses. No cyanosis, clubbing, or edema. Diagnostic Studies: His electrocardiogram shows sinus rhythm, leftward axis, incomplete right bundle -branch block, not significantly different from older EKGs. Impression: Mr. Walker has a stable heart. He is a low-risk patient for undergoing general anesthesi a and surgery for recurrent bowel obstruction and a right inguinal hernia. PJ/MODL Voice ID: [id number] Report ID: [id number]
[2019-03-13] MEDS: METRONIDAZOLE 500mg IVPB 500 MG/100 ML BAG IV SCH ×3 (00:33→11:42)
[2019-03-13] MEDS: CEFOXITIN/SWI 1gm 1 GM/10 ML SYR IV SCH ×2 (03:28→08:50)
[2019-03-13 06:09] LABS: Phosphorus 2.3 mg/dL (2.5-4.9); Potassium 4.1 mmol/L (3.5-5.1)
[2019-03-13] MEDS ORDERED: POTASSIUM PHOS IN 0.9 % NACL 15 MMOL/250 ML BAG IV ONE (07:30)
[2019-03-13] MEDS: BUPIVACA 0.25%/EPI 0.0005% MDV 50 ML VIAL ONE ×2 (08:03→09:06)
[2019-03-13] MEDS ORDERED: Ringers Lactate 1,000 ML IV ONE (08:11)
[2019-03-13] MEDS: ENOXAPARIN 30 MG/0.3 ML SQ SCH (08:22)
[2019-03-13] MEDS: PANTOPRAZOLE 40 MG INJ IVP SCH (08:22)
[2019-03-13] MEDS ORDERED: FENTANYL CITR 100 MCG/2 ML ONE ×2 (08:50→09:15)
[2019-03-13] MEDS ORDERED: LIDOCAINE 1% MPF 5 ML VIAL ONE (08:50)
[2019-03-13] MEDS ORDERED: PROPOFOL 200 MG/20 ML VIAL IV ONE (08:50)
[2019-03-13] MEDS: NA CHLORIDE 0.9% 1,000 ML IV SCH (09:00)
[2019-03-13] MEDS ORDERED: KETOROLAC 30 MG/ML INJ ONE (09:22)
[2019-03-13] MEDS ORDERED: ONDANSETRON 4 MG/2 ML VIAL ONE (09:23)
[2019-03-13] MEDS ORDERED: MEPERIDINE HCL 25 MG/0.5 ML ONE (10:06)
--- NOTE | 2019-03-13 10:07 | P.OP ---
Preoperative diagnosis: RIGHT indirect inguinal hernia Postoperative diagnosis: RIGHT indirect inguinal hernia Primary procedure: Open Repair of RIGHT indirect inguinal hernia with mesh Anesthesia: GETA + Local Estimated blood loss: <2cc Specimen: Cord Lipoma, Hernia Sack Findings: Large RIGHT indirect inguinal hernia Complications: None Transferred to: Recovery Room Condition: Good
--- NOTE | 2019-03-13 10:16 | P.PN ---
Subjective Date of Service: 03/12/19 Chief Complaint: small-bowel obstruction Subjective: Improving Physical Examination - Vital Signs Temperature: 99.9 F Blood Pressure: 117/66 Pulse: 61 Respirations: 18 Pulse Ox (%): 95 - Physical Exam General: Alert, In no apparent distress, Cooperative Gastrointestinal: Normal bowel sounds, Non-distended, No ascites, No tenderness , No masses, No rebound, No guarding Assessment And Plan - Plan - cardiac clearance - plan for open inguinal hernia repair in AM Discharge Plan: Home Plan to discharge in: 24 Hours
[2019-03-13] MEDS: HYDROMORPHONE HCL 1 MG/ML INJ ONE ×4 (10:34→10:49)
[2019-03-13 10:49] VITALS: O2SAT 96
[2019-03-13 15:18] VITALS: BP 137/68; TEMP 97.8
--- NOTE | 2019-03-13 21:10 | OP ---
Date of Procedure: 03/13/2019 Surgeon: Aamir Robledo MD, Preoperative Diagnosis: Right indirect inguinal hernia. Postoperative Diagnosis: Right indirect inguinal hernia. Procedure Perjformed: Open repair of right indirect inguinal hernia with mesh. Anesthesia: General endotracheal plus local. Estimated Blood Loss: Less than 2 cc. Specimen: Cord lipoma and hernia sac. Findings: Large right indirect inguinal hernia. Complications: None. Transferred to recovery room in good condition. Implants: Polypropylene plug and patch large hernia repair system, Bard PerFix used. Procedure In Detail: After informed consent was obtained, the patient was brought to the operating r oom, prepped and draped in the usual sterile fashion. After adequate anesthesia was achieved, an are a of the right groin was inspected and a 10-blade scalpel was used to make an oblique incision parall el and superior to the inguinal ligament. This was deepened through Camper fat and Carolee fascia usi ng electrocautery down to the external oblique aponeurosis. The external oblique aponeurosis was ope mando in the direction of its fibers through the external ring using the Metzenbaum scissors. The ilio inguinal nerve was identified and protected from any injury. The inguinal floor was exposed by creat ing superior and inferior flaps of the external oblique. The spermatic cord was identified mobilizin g the pubic tubercle and isolating it with Lucio drains. This was done by dissecting the cremaster ic fibers from the cord. The anteromedial aspect of the cord was examined and indirect hernia sac wa s identified. The sac was carefully dissected free from the cord down to the level of external ring. A cord lipoma was appreciated, dissected off the inguinal ring and ligated using a 3-0 Vicryl sutur e and electrocautery was used to cauterize this end. It was sent off to the back table. The vas def erens and testicular vessels were identified and protected throughout the remainder of the operation. The sac was opened and the contents were reduced in the preperitoneal space and the peritoneal cavi ty. The sac was twisted and suture ligated and the redundant sac was excised using electrocautery, s ent off for pathologic examination. The stump was checked for hemostasis. It was reopened at a smal ler area and a large PerFix plug system was used in the preperitoneal space and sutured using 0 Prole ne sutures. The full inguinal canal was assessed digitally and found to be intact. To repair the fl oor of inguinal canal, a polypropylene large Virgie-type mesh was cut to size an oval ring with a longitudinal lateral opening, starting at the pubic tubercle, the mesh was secured flat with inter rupted 0 PDS sutures to the reflected edge of the inguinal ligament inferiorly, to the conjoint tendo n superiorly. The ends of the patch were draped in the cord structures at the level of the inguinal ring. The Goldsmith drain was removed and the cord sample was returned to normal anatomic position abo ve. The external oblique aponeurosis was inspected at this time. The area was copiously irrigated m ultiple times until completely clear and the external oblique aponeurosis was closed using a 3-0 Vicr yl in a running fashion. The area was copiously irrigated once again and the Camper fat and Carolee f ascia were closed en bloc with 3-0 Vicryl in interrupted fashion and the deep dermal layer was closed with additional 3-0 Vicryl in an interrupted fashion. The skin was then closed using a 4-0 Monocryl in a running fashion. Dermabond was placed over top the patient. The patient tolerated the procedu re without any complication, transferred to the PACU in good condition. All counts were correct at t he end of case. The testicle was distracted at the end of the case. CELSA/HAKEEM Voice ID: [id number] Report ID: [id number]
--- NOTE | 2019-03-14 00:40 | DS ---
Date of Discharge: 03/13/2019 Consultants: Dr. Claudio with General Surgery, Dr. Robledo with General Surgery. Procedures: Right inguinal hernia repair by Dr. Robledo on 03/13/2019. Admitting Diagnoses: 1.Small bowel obstruction. 2.Right inguinal hernia. 3.Coronary atherosclerosis. 4.History of ischemic bowel disease. 5.Renal insufficiency. 6.Benign prostatic hyperplasia, chronic. 7.Coronary artery disease, tanana artery and tanana heart without angina. 8.Depression and anxiety. Discharge Diagnoses: 1.Small bowel obstruction secondary to hernia, resolved. 2.Right inguinal hernia, status post repair. 3.Coronary artery disease, tanana artery and tanana heart without angina. 4.History of ischemic bowel disease. 5.Renal insufficiency. 6.Benign prostatic hyperplasia, chronic without urinary tract infection symptoms. 7.Depression with anxiety. 8.Incomplete right bundle branch block. Hospital Course: Patient is a 68-year-old male with past medical history of coronary artery disease, depression, anxiety, hypertension, hyperlipidemia, comes in with small bowel obstruction. Patient w as initially scheduled to have surgery as outpatient for inguinal hernia, however, required cardiac c learance. Dr. Siddiqui with Cardiology was consulted. Patient was cleared from his standpoint for radha hero. Patient was then taken by Dr. Robledo for right inguinal hernia repair. Patient tolerated the procedure well. He was able to void postoperatively, did not have any significant pain. He was the n cleared for discharge. He was able to tolerate a diet. Followup: Patient will need to follow up with his PCP in 2 to 3 days. He is to follow up with surge on, Dr. Robledo, in 7 to 10 days for a wound check. Return to ER for worsening condition. Diet: Heart healthy diet. Medications: As per medication reconciliation list. Physical Examination: General: Awake, alert, and oriented x3; elderly male. CV: S1, S2. Respiratory: Moving air well bilaterally. Abdomen: Soft, nontender, nondistended. Positive bowel sounds. Skin: Right inguinal hernia incision site clean, dry, and intact. Extremities: No clubbing, cyanosis, or edema. Neurologic: Nonfocal. Time Spent: Total time spent in discharging the patient was 35 minutes. Code Status: Full. SA/MODL Voice ID: [id number] Report ID: [id number]
--- NOTE | 2019-03-14 10:41 | PN ---
Date of Progress Note: 03/13/2019 The patient was seen by Dr. Siddiqui on 03/12/2019 for a clearance for hernia surgery and small bowel o bstruction. Mr. Walker has had a stent in 2001. Lexiscan in 2019 was normal. He was cleared for radha hero. The surgery was done on 03/13/2019. The patient has done well. No issues with coronary arter y disease, congestive heart failure or arrhythmia. We will sign off the case. We will sign off his case. CHAUNCEY/HAKEEM Voice ID: [id number] Report ID: [id number]
== END 2019-03-13 14:42 | disposition home or self-care (01) | DRG 352 ==
LOC: ER 20:12 → ERHOLD 03-10 00:20 → 2ND 03-10 01:00
PROVIDERS: ADMIT Hospitalist; ATTEND Family Medicine
PROC: 0YU50JZ Supplement Right Inguinal Region with Synthetic Substitute, Open Approach (ICD-10-PCS; principal; 2019-03-13 08:30)
DX: K40.30 Unilateral inguinal hernia, with obstruction, without gangrene, not specified as recurrent (principal); N28.9 Disorder of kidney and ureter, unspecified; I45.10 Unspecified right bundle-branch block; I10 Essential (primary) hypertension; I25.10 Atherosclerotic heart disease of native coronary artery without angina pectoris; N40.0 Benign prostatic hyperplasia without lower urinary tract symptoms; F41.8 Other specified anxiety disorders; E78.5 Hyperlipidemia, unspecified; K21.9 Gastro-esophageal reflux disease without esophagitis; Z95.5 Presence of coronary angioplasty implant and graft
CPT/HCPCS: 36415; 74177; 80048; 80053; 80076; 81003; 81015; 83605; 83690; 83735; 84100; 85025; 87045; 87046; 88302; 93005; 96361; 96365; 96375; 99285; C9113; J0744; J1170; J1650; J2175; J2405; J2704; J3010; J7030; Q9967